=== PATIENT | male | born 1980 | race Asian ===

== ENCOUNTER 2017-02-14 21:25 | Emergency (ER) | payer OTHER ==
[~2017-02-14] VITALS: Ht 147.3 cm; Wt 60.0 kg
[~2017-02-14 21:25] MED LIST: CLOZ100 PO; DOCU250C91 PO; ESCI20TA PO; FAMO-135 PO; LEVO125T4 PO; LURA80 PO
[2017-02-14] MEDS ORDERED: LORA1TAB3 PO (21:47)
[2017-02-14 22:00] LABS: BASOPHILS % (AUTO) 0.4 % (0.0-2.0); EOSINOPHILS % (AUTO) 2.3 % (1.0-6.0); HEMATOCRIT 37.5 % (41-53); HEMOGLOBIN 12.5 g/dL (13.5-17.5); LYMPHOCYTES # (AUTO) 2.1 K/uL (1.0-4.8); LYMPHOCYTES % (AUTO) 29.8 % (22.0-44.0); MEAN CORPUSCULAR HEMOGLOBIN 28.2 pg (26.0-34.0); MEAN CORPUSCULAR HGB CONC 33.2 G/dL (31.0-37.0); MEAN CORPUSCULAR VOLUME 85 fL (80-100); MONOCYTES # (AUTO) 0.6 K/uL (0.1-1.0); MONOCYTES % (AUTO) 7.7 % (2.0-9.0); NEUTROPHILS # (AUTO) 4.3 K/uL (1.8-7.7); NEUTROPHILS % (AUTO) 59.8 % (40.0-70.0); PLATELET COUNT (AUTO) 293 K/uL (150-450); RED BLOOD CELL COUNT(AUTO) 4.42 MIL/uL (4.50-5.90); RED CELL DISTRIBUTION WIDTH 13.4 % (11.5-14.5); WHITE BLOOD COUNT (AUTO) 7.2 K/uL (4.5-11.0)
[2017-02-14 22:12] LABS: ANION GAP 8 mmol/L (8-16); CALCIUM, TOTAL 8.5 mg/dL (8.8-10.5); CARBON DIOXIDE 26 mmol/L (22-29); CHLORIDE 105 mmol/L (98-107); CREATININE 1.03 mg/dL (0.60-1.30); GLOMERULAR FILTR. RATE CALC > 60 mL/min (>60); POTASSIUM 3.1 mmol/L (3.5-5.1); SODIUM SERUM 139 mmol/L (136-145); UREA NITROGEN, BLOOD 19 mg/dL (7-18)
[2017-02-14 22:15] LABS: ALANINE AMINOTRANSFERASE 19 U/L (12-78); ALBUMIN 3.8 g/dL (3.4-5.0); ASPARTATE AMINOTRANSFERASE 16 U/L (15-37); BILIRUBIN,TOTAL 0.2 mg/dL (0.1-1.0); TOTAL PROTEIN, SERUM 7.1 g/dL (6.4-8.2)
[2017-02-14] MEDS ORDERED: HALOPERIDOL 5 MG TABLET PO ONE (22:45)
[2017-02-14] MEDS ORDERED: LORazepam 2 MG TABLET PO ONE (22:45)
[2017-02-15 00:08] VITALS: BP 111/66
== END 2017-02-15 00:27 | disposition home or self-care (01) ==
LOC: EMS 21:26
DX: F25.9 Schizoaffective disorder, unspecified (principal); E03.9 Hypothyroidism, unspecified; I10 Essential (primary) hypertension; E78.00 Pure hypercholesterolemia, unspecified; Z91.040 Latex allergy status; Z91.011 Allergy to milk products
CPT/HCPCS: 36415; 80053; 85025; 99284; G0480

== ENCOUNTER 2017-05-03 12:43 | Emergency (ER) | payer OTHER ==
[~2017-05-03] VITALS: Ht 149.9 cm; Wt 63.6 kg
[~2017-05-03 12:43] MED LIST changes: +LORA-192 PO; +LORA1TAB3 PO; +OLAN10TA22 PO
[2017-05-03] MEDS ORDERED: HALO5 PO (13:07)
[2017-05-03] MEDS ORDERED: LEVO125T4 PO (13:07)
[2017-05-03] MEDS ORDERED: METO25 PO (13:07)
[2017-05-03] MEDS ORDERED: OLAN10TA3 PO ×2 (13:07)
[2017-05-03] MEDS ORDERED: GEMF600T3 PO (13:07)
[2017-05-03] MEDS ORDERED: CLON.5 PO (13:07)
[2017-05-03 13:57] VITALS: BP 128/83
== END 2017-05-03 14:16 | disposition home or self-care (01) ==
LOC: EEVIPCON 12:45 → EMS 12:45
DX: S70.311A Abrasion, right thigh, initial encounter (principal); F20.9 Schizophrenia, unspecified; E03.9 Hypothyroidism, unspecified; E78.00 Pure hypercholesterolemia, unspecified; I10 Essential (primary) hypertension; Z91.040 Latex allergy status; Z91.011 Allergy to milk products; X58.XXXA Exposure to other specified factors, initial encounter; Y93.89 Activity, other specified; Y92.89 Other specified places as the place of occurrence of the external cause; Y99.8 Other external cause status
CPT/HCPCS: 99285

== ENCOUNTER 2017-11-07 13:18 | Inpatient (IN) | payer MEDICAID, OTHER ==
[~2017-11-07] VITALS: Ht 149.9 cm; Wt 60.8 kg
[~2017-11-07 13:18] MED LIST changes: +CLON.5 PO; +GEMF600T3 PO; +HALO5 PO; -LORA-192 PO; +METO25 PO; -OLAN10TA22 PO; +OLAN10TA3 PO
[2017-11-07 14:03] LABS: BASOPHILS # (AUTO) 0.05 K/uL (0.00-0.20); BASOPHILS % (AUTO) 0.8 % (0.0-2.0); EOSINOPHILS # (AUTO) 0.46 K/uL (0.00-0.70); EOSINOPHILS % (AUTO) 8.17 % (1.0-6.0); HEMATOCRIT 42.4 % (41-53); HEMOGLOBIN 14.3 g/dL (13.5-17.5); LYMPHOCYTES # (AUTO) 1.2 K/uL (1.0-4.8); LYMPHOCYTES % (AUTO) 21.6 % (22.0-44.0); MEAN CORPUSCULAR HEMOGLOBIN 29.3 pg (26.0-34.0); MEAN CORPUSCULAR HGB CONC 33.6 G/dL (31.0-37.0); MEAN CORPUSCULAR VOLUME 87 fL (80-100); MONOCYTES # (AUTO) 0.2 K/uL (0.1-1.0); MONOCYTES % (AUTO) 4.2 % (2.0-9.0); NEUTROPHILS # (AUTO) 3.7 K/uL (1.8-7.7); NEUTROPHILS % (AUTO) 65.2 % (40.0-70.0); PLATELET COUNT (AUTO) 320 K/uL (150-450); RED BLOOD CELL COUNT(AUTO) 4.88 MIL/uL (4.50-5.90); RED CELL DISTRIBUTION WIDTH 14.2 % (11.5-14.5)
[2017-11-07 14:11] LABS: ANION GAP 10 mmol/L (8-16); CALCIUM, TOTAL 9.2 mg/dL (8.8-10.5); CARBON DIOXIDE 29 mmol/L (22-29); CHLORIDE 102 mmol/L (98-107); CREATININE 1.16 mg/dL (0.60-1.30); GLOMERULAR FILTR. RATE CALC > 60 mL/min (>60); GLUCOSE,RANDOM 97 mg/dL (70-110); POTASSIUM 4.3 mmol/L (3.5-5.1); SODIUM SERUM 141 mmol/L (136-145); UREA NITROGEN, BLOOD 19 mg/dL (7-18)
[2017-11-07 14:17] LABS: ALANINE AMINOTRANSFERASE 24 U/L (12-78); ALBUMIN 4.8 g/dL (3.4-5.0); ALKALINE PHOSPHATASE 86 U/L (46-116); ASPARTATE AMINOTRANSFERASE 25 U/L (15-37); BILIRUBIN,TOTAL 0.2 mg/dL (0.1-1.0); TOTAL PROTEIN, SERUM 9.3 g/dL (6.4-8.2)
[2017-11-07 18:25] VITALS: BP 115/76
[2017-11-07 19:01] LABS: CHOL/HDL RATIO 4.8 (4.2-7.3); CHOLESTEROL 144 mg/dL (131-200); HDL CHOLESTEROL 30 mg/dL (40-60); LDL CHOL (CALC.) 70 mg/dL (0-130); TRIGLYCERIDES 219 mg/dL (15-150)
[2017-11-07 19:44] VITALS: BP 103/71
[2017-11-07] MEDS: ZOLPIDEM TARTRATE 10 MG TABLET PO PRN (20:28)
[2017-11-07] MEDS: LORazepam 2 MG TABLET PO PRN (20:28)
[2017-11-07] MEDS ORDERED: PNEUMOCOCCAL VACCINE POLYVALENT 0.5 ML VIAL [PPSV23] IM ONE (20:45)
[2017-11-07] MEDS ORDERED: INFLUENZA VIRUS VACCINE QVS 2017-18 (3YR+)/PF 60 MCG/0.5 ML SYRINGE IM ONE (20:45)
[2017-11-07 23:10] VITALS: BP 103/71
[2017-11-08] MEDS ORDERED: HALOPERIDOL LACTATE 5 MG/ML VIAL IM ONE
[2017-11-08] MEDS ORDERED: LORazepam 2 MG/ML VIAL IM ONE
[2017-11-08] MEDS ORDERED: DiphenhydrAMINE HCL 50 MG/ML VIAL IM ONE
[2017-11-08] MEDS: HALOPERIDOL 5 MG TABLET PO PRN ×2 (02:35→17:48)
[2017-11-08] MEDS: LORazepam 2 MG TABLET PO PRN ×3 (02:35→19:27)
[2017-11-08 12:17] VITALS: BP 106/66
[2017-11-08] MEDS: GEMFIBROZIL 600 MG TABLET PO SCH (17:23)
[2017-11-08 19:01] VITALS: BP 110/63
[2017-11-08] MEDS: ZOLPIDEM TARTRATE 10 MG TABLET PO PRN (21:52)
[2017-11-08] MEDS: METOPROLOL TARTRATE 25 MG TABLET PO SCH (21:52)
[2017-11-08 22:59] VITALS: BP 113/73
[2017-11-09] MEDS: GEMFIBROZIL 600 MG TABLET PO SCH ×2 (06:46→17:38)
[2017-11-09] MEDS: LEVOTHYROXINE SODIUM 125 MCG TABLET PO SCH (06:46)
[2017-11-09] MEDS: METOPROLOL TARTRATE 25 MG TABLET PO SCH ×2 (08:00→17:39)
[2017-11-09 08:10] VITALS: BP 123/76
[2017-11-09] MEDS ORDERED: FAMO20 PO (16:49)
[2017-11-09] MEDS ORDERED: RisperiDONE 1 MG TABLET PO SCH (17:00)
[2017-11-09] MEDS: CloZAPine 100 MG TABLET PO SCH (20:24)
[2017-11-10] MEDS: LEVOTHYROXINE SODIUM 125 MCG TABLET PO SCH (07:02)
[2017-11-10] MEDS: GEMFIBROZIL 600 MG TABLET PO SCH ×2 (07:02→16:13)
[2017-11-10 08:30] VITALS: BP 135/76
[2017-11-10] MEDS: METOPROLOL TARTRATE 25 MG TABLET PO SCH ×2 (08:58→16:13)
[2017-11-10 16:35] VITALS: BP 119/75
[2017-11-10 17:03] LABS: GLUCOMETER DEV NAME(LOC) 3EI B; GLUCOSE,POINT OF CARE 109 MG/DL (70-110)
[2017-11-10] MEDS: HALOPERIDOL 5 MG TABLET PO PRN (17:07)
[2017-11-10] MEDS: CloZAPine 100 MG TABLET PO SCH (21:34)
[2017-11-11 06:19] LABS: GLUCOMETER DEV NAME(LOC) 3EI B; GLUCOSE,POINT OF CARE 100 MG/DL (70-110)
[2017-11-11] MEDS: GEMFIBROZIL 600 MG TABLET PO SCH ×2 (06:39→16:18)
[2017-11-11] MEDS: LEVOTHYROXINE SODIUM 125 MCG TABLET PO SCH (06:39)
[2017-11-11 08:30] VITALS: BP 144/77
[2017-11-11] MEDS: METOPROLOL TARTRATE 25 MG TABLET PO SCH ×2 (09:48→16:18)
[2017-11-11] MEDS: HALOPERIDOL 5 MG TABLET PO PRN (16:18)
[2017-11-11 16:23] LABS: GLUCOMETER DEV NAME(LOC) 3EI B; GLUCOSE,POINT OF CARE 90 MG/DL (70-110)
[2017-11-11 17:00] VITALS: BP 120/82
[2017-11-11] MEDS: CloZAPine 100 MG TABLET PO SCH (22:01)
[2017-11-12 05:33] LABS: GLUCOMETER DEV NAME(LOC) 3EI B; GLUCOSE,POINT OF CARE 87 MG/DL (70-110)
[2017-11-12] MEDS: LEVOTHYROXINE SODIUM 125 MCG TABLET PO SCH (06:33)
[2017-11-12] MEDS: GEMFIBROZIL 600 MG TABLET PO SCH ×2 (06:33→16:11)
[2017-11-12 08:51] VITALS: BP 120/75
[2017-11-12] MEDS: METOPROLOL TARTRATE 25 MG TABLET PO SCH ×2 (08:57→16:11)
[2017-11-12] MEDS ORDERED: VIT E ACET/GLY/DIMETH/WATER 236 ML LOTION TP PRN (09:45)
[2017-11-12 17:03] LABS: GLUCOMETER DEV NAME(LOC) 3EI B; GLUCOSE,POINT OF CARE 115 MG/DL (70-110)
[2017-11-12 17:29] VITALS: BP 115/70
[2017-11-12] MEDS: CloZAPine 100 MG TABLET PO SCH (21:37)
[2017-11-13 06:32] LABS: GLUCOMETER DEV NAME(LOC) 3EI B; GLUCOSE,POINT OF CARE 106 MG/DL (70-110)
[2017-11-13] MEDS: LEVOTHYROXINE SODIUM 125 MCG TABLET PO SCH (06:54)
[2017-11-13] MEDS: GEMFIBROZIL 600 MG TABLET PO SCH ×2 (06:54→16:48)
[2017-11-13 08:44] VITALS: BP 119/87
[2017-11-13] MEDS: METOPROLOL TARTRATE 25 MG TABLET PO SCH ×2 (10:31→16:47)
[2017-11-13 17:07] LABS: GLUCOMETER DEV NAME(LOC) 3EI B; GLUCOSE,POINT OF CARE 105 MG/DL (70-110)
[2017-11-13] MEDS: CloZAPine 100 MG TABLET PO SCH (20:36)
[2017-11-13 20:57] VITALS: BP 121/86
[2017-11-14 06:22] LABS: GLUCOMETER DEV NAME(LOC) 3EI B; GLUCOSE,POINT OF CARE 95 MG/DL (70-110)
[2017-11-14] MEDS: GEMFIBROZIL 600 MG TABLET PO SCH ×2 (06:37→17:08)
[2017-11-14] MEDS: LEVOTHYROXINE SODIUM 125 MCG TABLET PO SCH (06:37)
[2017-11-14 07:54] LABS: BASOPHILS # (AUTO) 0.05 K/uL (0.00-0.20); BASOPHILS % (AUTO) 0.8 % (0.0-2.0); EOSINOPHILS # (AUTO) 0.71 K/uL (0.00-0.70); EOSINOPHILS % (AUTO) 11.64 % (1.0-6.0); HEMOGLOBIN 13.3 g/dL (13.5-17.5); LYMPHOCYTES # (AUTO) 1.4 K/uL (1.0-4.8); LYMPHOCYTES % (AUTO) 23.2 % (22.0-44.0); MEAN CORPUSCULAR HEMOGLOBIN 28.9 pg (26.0-34.0); MEAN CORPUSCULAR HGB CONC 33.2 G/dL (31.0-37.0); MEAN CORPUSCULAR VOLUME 87 fL (80-100); MONOCYTES # (AUTO) 0.5 K/uL (0.1-1.0); MONOCYTES % (AUTO) 7.3 % (2.0-9.0); NEUTROPHILS # (AUTO) 3.5 K/uL (1.8-7.7); NEUTROPHILS % (AUTO) 57.1 % (40.0-70.0); PLATELET COUNT (AUTO) 251 K/uL (150-450); RED CELL DISTRIBUTION WIDTH 13.4 % (11.5-14.5)
[2017-11-14 08:05] VITALS: BP 131/96
[2017-11-14] MEDS: METOPROLOL TARTRATE 25 MG TABLET PO SCH ×2 (10:06→17:09)
[2017-11-14] MEDS ORDERED: NALOXONE HCL 1 MG/ML 2 ML SYG IVP ONE (15:13)
[2017-11-14 17:12] LABS: GLUCOMETER DEV NAME(LOC) 3EI B; GLUCOSE,POINT OF CARE 103 MG/DL (70-110)
[2017-11-14] MEDS ORDERED: LORazepam 2 MG/ML VIAL IVP ONE (18:15)
[2017-11-14 18:40] LABS: BASOPHILS % (AUTO) 0.1 % (0.0-2.0); EOSINOPHILS # (AUTO) 0.48 K/uL (0.00-0.70); EOSINOPHILS % (AUTO) 6.13 % (1.0-6.0); HEMATOCRIT 41.8 % (41-53); HEMOGLOBIN 13.8 g/dL (13.5-17.5); LYMPHOCYTES # (AUTO) 1.3 K/uL (1.0-4.8); LYMPHOCYTES % (AUTO) 16.3 % (22.0-44.0); MEAN CORPUSCULAR HEMOGLOBIN 28.5 pg (26.0-34.0); MEAN CORPUSCULAR VOLUME 86 fL (80-100); MONOCYTES # (AUTO) 0.4 K/uL (0.1-1.0); MONOCYTES % (AUTO) 5.7 % (2.0-9.0); NEUTROPHILS # (AUTO) 5.6 K/uL (1.8-7.7); NEUTROPHILS % (AUTO) 71.8 % (40.0-70.0); RED BLOOD CELL COUNT(AUTO) 4.84 MIL/uL (4.50-5.90); RED CELL DISTRIBUTION WIDTH 13.4 % (11.5-14.5)
[2017-11-14 18:47] LABS: ANION GAP 12 mmol/L (8-16); CARBON DIOXIDE 24 mmol/L (22-29); CHLORIDE 102 mmol/L (98-107); CREATININE 1.06 mg/dL (0.60-1.30); GLOMERULAR FILTR. RATE CALC > 60 mL/min (>60); GLUCOSE,RANDOM 103 mg/dL (70-110); POTASSIUM 4.5 mmol/L (3.5-5.1); SODIUM SERUM 138 mmol/L (136-145); UREA NITROGEN, BLOOD 22 mg/dL (7-18)
[2017-11-14 18:53] LABS: ALANINE AMINOTRANSFERASE 28 U/L (12-78); ALBUMIN 4.4 g/dL (3.4-5.0); ALKALINE PHOSPHATASE 92 U/L (46-116); ASPARTATE AMINOTRANSFERASE 24 U/L (15-37); BILIRUBIN,TOTAL 0.3 mg/dL (0.1-1.0); TOTAL PROTEIN, SERUM 8.6 g/dL (6.4-8.2)
[2017-11-14 19:32] LABS: PLATELET COUNT (AUTO) 225 K/uL (150-450)
[2017-11-14 19:34] VITALS: BP 142/92
[2017-11-14] MEDS: CloZAPine 100 MG TABLET PO SCH (21:55)
[2017-11-15 02:23] VITALS: BP 148/86
[2017-11-15 06:02] LABS: GLUCOMETER DEV NAME(LOC) 3EI B; GLUCOSE,POINT OF CARE 97 MG/DL (70-110)
[2017-11-15] MEDS: LEVOTHYROXINE SODIUM 125 MCG TABLET PO SCH (06:17)
[2017-11-15] MEDS: GEMFIBROZIL 600 MG TABLET PO SCH (06:17)
[2017-11-15 08:00] VITALS: BP 122/77
[2017-11-15] MEDS: METOPROLOL TARTRATE 25 MG TABLET PO SCH (09:32)
[2017-11-15] MEDS: LORazepam 2 MG TABLET PO PRN (09:46)
[2017-11-15] MEDS ORDERED: PERMETHRIN 5% 60 GM CREAM TP ONE (12:45)
== END 2017-11-15 15:14 | disposition home or self-care (01) | DRG 750 ==
LOC: EMS 13:26 → AHU 17:50 → 3EI 11-09 14:08
PROVIDERS: ADMIT Psychiatry & Neurology Psychiatry; ATTEND Psychiatry & Neurology Psychiatry
PROC: 3E0234Z Introduction of Serum, Toxoid and Vaccine into Muscle, Percutaneous Approach (ICD-10-PCS; principal; 2017-11-07)
DX: F20.0 Paranoid schizophrenia (principal); E11.9 Type 2 diabetes mellitus without complications; R45.851 Suicidal ideations; I10 Essential (primary) hypertension; E03.9 Hypothyroidism, unspecified; E78.5 Hyperlipidemia, unspecified; K59.09 Other constipation; D35.2 Benign neoplasm of pituitary gland; Z91.040 Latex allergy status; Z91.011 Allergy to milk products; Z23 Encounter for immunization
CPT/HCPCS: 70450; 82962; 99285; G0480; J1200; J1630; J2060; J2310

== ENCOUNTER 2017-12-11 12:17 | Inpatient (IN) | payer MEDICAID, OTHER ==
[~2017-12-11] VITALS: Ht 147.3 cm; Wt 58.5 kg
[~2017-12-11 12:17] MED LIST changes: -CLON.5 PO; -DOCU250C91 PO; -ESCI20TA PO; -FAMO-135 PO; -HALO5 PO; -LORA1TAB3 PO; -LURA80 PO; -OLAN10TA3 PO
[2017-12-11] MEDS ORDERED: CLON1 PO (12:42)
[2017-12-11] MEDS ORDERED: BENZ1TAB10 PO (12:42)
[2017-12-11] MEDS ORDERED: OLAN10TA3 PO ×2 (12:42)
[2017-12-11] MEDS ORDERED: HALO5 PO (12:42)
[2017-12-11] MEDS ORDERED: LURA80 PO (12:42)
[2017-12-11] MEDS ORDERED: HALO50VI4 IM (12:42)
[2017-12-11] MEDS ORDERED: LORazepam 2 MG/ML VIAL IM ONE (13:15)
[2017-12-11] MEDS ORDERED: HALOPERIDOL LACTATE 5 MG/ML VIAL IM ONE (13:15)
[2017-12-11 13:20] LABS: BASOPHILS % (AUTO) 0.9 % (0.0-2.0); EOSINOPHILS % (AUTO) 3.1 % (1.0-6.0); HEMATOCRIT 39.6 % (41-53); HEMOGLOBIN 13.6 g/dL (13.5-17.5); LYMPHOCYTES # (AUTO) 1.1 K/uL (1.0-4.8); LYMPHOCYTES % (AUTO) 26.3 % (22.0-44.0); MEAN CORPUSCULAR HGB CONC 34.5 G/dL (31.0-37.0); MEAN CORPUSCULAR VOLUME 81 fL (80-100); MONOCYTES # (AUTO) 0.2 K/uL (0.1-1.0); MONOCYTES % (AUTO) 5.8 % (2.0-9.0); NEUTROPHILS # (AUTO) 2.7 K/uL (1.8-7.7); NEUTROPHILS % (AUTO) 63.9 % (40.0-70.0); PLATELET COUNT (AUTO) 296 K/uL (150-450); RED BLOOD CELL COUNT(AUTO) 4.87 MIL/uL (4.50-5.90); RED CELL DISTRIBUTION WIDTH 13.2 % (11.5-14.5)
[2017-12-11 13:42] LABS: ANION GAP 7 mmol/L (8-16); CARBON DIOXIDE 28 mmol/L (22-29); CHLORIDE 105 mmol/L (98-107); CREATININE 0.92 mg/dL (0.60-1.30); GLOMERULAR FILTR. RATE CALC > 60 mL/min (>60); GLUCOSE,RANDOM 90 mg/dL (70-110); SODIUM SERUM 140 mmol/L (136-145); UREA NITROGEN, BLOOD 12 mg/dL (7-18)
[2017-12-11 13:47] LABS: ALANINE AMINOTRANSFERASE 22 U/L (12-78); ALBUMIN 4.2 g/dL (3.4-5.0); ALKALINE PHOSPHATASE 67 U/L (46-116); ASPARTATE AMINOTRANSFERASE 21 U/L (15-37); BILIRUBIN,TOTAL 0.3 mg/dL (0.1-1.0); TOTAL PROTEIN, SERUM 7.7 g/dL (6.4-8.2)
[2017-12-11 13:50] LABS: AMPHET/METH SCREEN,URINE NEGATIVE (NEGATIVE); BARBITURATE SCREEN, URINE NEGATIVE (NEGATIVE); BENZODIAZEPINES SCREEN,URINE NEGATIVE (NEGATIVE); CANNABINOID SCREEN,URINE NEGATIVE (NEGATIVE); COCAINE SCREEN,URINE NEGATIVE (NEGATIVE); METHADONE SCREEN, URINE NEGATIVE (NEGATIVE); OPIATE SCREEN,URINE NEGATIVE (NEGATIVE)
[2017-12-11 13:51] LABS: PHENCYCLIDINE SCREEN,URINE NEGATIVE (NEGATIVE)
[2017-12-11] MEDS ORDERED: ZOLPIDEM TARTRATE 10 MG TABLET PO PRN (14:15)
[2017-12-11 18:32] LABS: GLUCOMETER DEV NAME(LOC) BV3N5; GLUCOSE,POINT OF CARE 113 MG/DL (70-110)
[2017-12-11 18:36] VITALS: BP 124/68
[2017-12-11] MEDS ORDERED: INFLUENZA VIRUS VACCINE QVS 2017-18 (3YR+)/PF 60 MCG/0.5 ML SYRINGE IM ONE (18:45)
[2017-12-11] MEDS ORDERED: PNEUMOCOCCAL VACCINE POLYVALENT 0.5 ML VIAL [PPSV23] IM ONE (18:45)
[2017-12-12 00:32] VITALS: BP 118/71
[2017-12-12] MEDS: LEVOTHYROXINE SODIUM 125 MCG TABLET PO SCH (06:38)
[2017-12-12] MEDS: GEMFIBROZIL 600 MG TABLET PO SCH ×2 (06:38→16:35)
[2017-12-12 08:06] VITALS: BP 110/67
[2017-12-12 09:00] LABS: CHOL/HDL RATIO 3.1 (4.2-7.3)
[2017-12-12] MEDS: LORazepam 2 MG TABLET PO PRN ×2 (09:28→16:35)
[2017-12-12] MEDS: METOPROLOL TARTRATE 25 MG TABLET PO SCH ×2 (09:28→16:35)
[2017-12-12] MEDS: HALOPERIDOL 5 MG TABLET PO PRN ×2 (09:28→16:35)
[2017-12-12] MEDS ORDERED: ACETAMINOPHEN 325 MG TABLET PO PRN (12:45)
[2017-12-12] MEDS ORDERED: IBUPROFEN 400 MG TABLET PO PRN (12:45)
[2017-12-12 16:00] VITALS: BP 114/65
[2017-12-12] MEDS: HALOPERIDOL 5 MG TABLET PO SCH (20:34)
[2017-12-13] MEDS: LEVOTHYROXINE SODIUM 125 MCG TABLET PO SCH (06:23)
[2017-12-13] MEDS: GEMFIBROZIL 600 MG TABLET PO SCH ×2 (06:23→17:31)
[2017-12-13 06:34] VITALS: BP 109/65
[2017-12-13 08:09] VITALS: BP 112/64
[2017-12-13 08:45] LABS: HEMOGLOBIN A1C 5.3 % (4.5-6.2)
[2017-12-13 08:51] LABS: THYROID STIMULATING HORMONE 8.71 uIU/mL (0.36-3.74)
[2017-12-13] MEDS: BENZTROPINE MESYLATE 1 MG TABLET PO SCH ×2 (09:18→17:31)
[2017-12-13] MEDS: METOPROLOL TARTRATE 25 MG TABLET PO SCH ×2 (09:18→17:31)
[2017-12-13 16:00] VITALS: BP 129/77
[2017-12-13] MEDS: LORazepam 2 MG TABLET PO PRN (17:31)
[2017-12-13] MEDS: HALOPERIDOL 5 MG TABLET PO PRN (17:31)
[2017-12-13] MEDS: HALOPERIDOL 5 MG TABLET PO SCH (21:14)
[2017-12-14 05:53] VITALS: BP 110/82
[2017-12-14] MEDS: LEVOTHYROXINE SODIUM 125 MCG TABLET PO SCH (06:36)
[2017-12-14] MEDS: GEMFIBROZIL 600 MG TABLET PO SCH ×2 (06:36→16:22)
[2017-12-14 08:22] VITALS: BP 114/76
[2017-12-14] MEDS: METOPROLOL TARTRATE 25 MG TABLET PO SCH ×2 (08:45→16:22)
[2017-12-14] MEDS: BENZTROPINE MESYLATE 1 MG TABLET PO SCH ×2 (08:45→16:22)
[2017-12-14] MEDS: LORazepam 2 MG TABLET PO PRN ×2 (11:51→17:15)
[2017-12-14] MEDS: HALOPERIDOL 5 MG TABLET PO PRN ×2 (11:51→18:43)
[2017-12-14] MEDS ORDERED: SELENIUM SULFIDE 1% 207 ML SHAMPOO TP PRN (12:30)
[2017-12-14 16:23] VITALS: BP 109/67
[2017-12-14] MEDS: HALOPERIDOL 5 MG TABLET PO SCH (20:09)
[2017-12-15 06:16] VITALS: BP 109/64
[2017-12-15] MEDS: GEMFIBROZIL 600 MG TABLET PO SCH ×2 (06:43→17:25)
[2017-12-15] MEDS: LEVOTHYROXINE SODIUM 125 MCG TABLET PO SCH (06:44)
[2017-12-15 08:08] VITALS: BP 106/62
[2017-12-15] MEDS: BENZTROPINE MESYLATE 1 MG TABLET PO SCH ×2 (08:30→17:25)
[2017-12-15] MEDS: METOPROLOL TARTRATE 25 MG TABLET PO SCH ×2 (08:30→17:25)
[2017-12-15 16:09] VITALS: BP 115/64
[2017-12-15] MEDS: LORazepam 2 MG TABLET PO PRN (17:25)
[2017-12-15] MEDS: HALOPERIDOL 5 MG TABLET PO SCH (20:43)
[2017-12-16 05:28] VITALS: BP 118/74
[2017-12-16] MEDS: GEMFIBROZIL 600 MG TABLET PO SCH ×2 (06:42→17:02)
[2017-12-16] MEDS: LEVOTHYROXINE SODIUM 125 MCG TABLET PO SCH (06:42)
[2017-12-16] MEDS: BENZTROPINE MESYLATE 1 MG TABLET PO SCH ×2 (08:18→17:02)
[2017-12-16] MEDS: METOPROLOL TARTRATE 25 MG TABLET PO SCH ×2 (08:18→17:02)
[2017-12-16] MEDS: LORazepam 2 MG TABLET PO PRN ×2 (08:18→17:02)
[2017-12-16 08:23] VITALS: BP 114/64
[2017-12-16 16:00] VITALS: BP 116/63
[2017-12-16] MEDS: HALOPERIDOL 5 MG TABLET PO PRN (17:03)
[2017-12-16] MEDS: HALOPERIDOL 5 MG TABLET PO SCH (20:30)
[2017-12-17] MEDS: LEVOTHYROXINE SODIUM 125 MCG TABLET PO SCH (06:25)
[2017-12-17] MEDS: GEMFIBROZIL 600 MG TABLET PO SCH (06:25)
[2017-12-17 06:29] VITALS: BP 114/63
[2017-12-17 08:11] VITALS: BP 116/62
[2017-12-17 08:36] LABS: APPEARANCE,URINE CLEAR (CLEAR); BILIRUBIN,URINE NEGATIVE (NEGATIVE); GLUCOSE, URINE (UA) NEGATIVE (NEGATIVE); KETONES,URINE NEGATIVE (NEGATIVE); LEUKOCYTE ESTERASE ,URINE NEGATIVE (NEGATIVE); NITRATE,URINE NEGATIVE (NEGATIVE); OCCULT BLOOD,URINE NEGATIVE (NEGATIVE); PROTEIN,URINE NEGATIVE (NEGATIVE); UROBILINOGEN,URINE 0.2 mg/dL (<=1.0)
[2017-12-17] MEDS: BENZTROPINE MESYLATE 1 MG TABLET PO SCH (09:31)
[2017-12-17] MEDS: METOPROLOL TARTRATE 25 MG TABLET PO SCH (09:31)
== END 2017-12-17 13:25 | disposition home or self-care (01) | DRG 750 ==
LOC: EEVIPCON 12:18 → EMS 12:18 → B3A 17:10
PROVIDERS: ADMIT Psychiatry & Neurology Psychiatry; ATTEND Psychiatry & Neurology Psychiatry
PROC: 3E0234Z Introduction of Serum, Toxoid and Vaccine into Muscle, Percutaneous Approach (ICD-10-PCS; principal; 2017-12-12)
DX: F20.0 Paranoid schizophrenia (principal); E11.9 Type 2 diabetes mellitus without complications; I10 Essential (primary) hypertension; E03.9 Hypothyroidism, unspecified; E78.5 Hyperlipidemia, unspecified; E78.00 Pure hypercholesterolemia, unspecified; K21.9 Gastro-esophageal reflux disease without esophagitis; F32.9 Major depressive disorder, single episode, unspecified; Z91.14 Patient's other noncompliance with medication regimen; Z91.040 Latex allergy status; Z91.011 Allergy to milk products; Z23 Encounter for immunization
CPT/HCPCS: 70450; 82962; 83036; 84443; 87081; 90471; 96372; 99285; G0480; J1630; J2060

== ENCOUNTER 2017-12-28 19:29 | Inpatient (IN) | payer MEDICAID, OTHER ==
[~2017-12-28] VITALS: Ht 147.3 cm; Wt 58.5 kg
[~2017-12-28 19:29] MED LIST changes: +BENZ1TAB10 PO; -CLOZ100 PO; +HALO5 PO
[2017-12-28 21:10] LABS: AMPHET/METH SCREEN,URINE NEGATIVE (NEGATIVE); BARBITURATE SCREEN, URINE NEGATIVE (NEGATIVE); BENZODIAZEPINES SCREEN,URINE NEGATIVE (NEGATIVE); CANNABINOID SCREEN,URINE NEGATIVE (NEGATIVE); COCAINE SCREEN,URINE NEGATIVE (NEGATIVE); METHADONE SCREEN, URINE NEGATIVE (NEGATIVE); OPIATE SCREEN,URINE NEGATIVE (NEGATIVE)
[2017-12-28 21:23] LABS: PHENCYCLIDINE SCREEN,URINE NEGATIVE (NEGATIVE)
[2017-12-28 21:25] LABS: BASOPHILS % (AUTO) 0.6 % (0.0-2.0); EOSINOPHILS % (AUTO) 2.8 % (1.0-6.0); HEMATOCRIT 38.7 % (41-53); HEMOGLOBIN 13.6 g/dL (13.5-17.5); LYMPHOCYTES # (AUTO) 2.3 K/uL (1.0-4.8); LYMPHOCYTES % (AUTO) 33.9 % (22.0-44.0); MEAN CORPUSCULAR HEMOGLOBIN 28.3 pg (26.0-34.0); MEAN CORPUSCULAR HGB CONC 35.1 G/dL (31.0-37.0); MEAN CORPUSCULAR VOLUME 81 fL (80-100); MONOCYTES # (AUTO) 0.6 K/uL (0.1-1.0); MONOCYTES % (AUTO) 8.3 % (2.0-9.0); NEUTROPHILS # (AUTO) 3.7 K/uL (1.8-7.7); NEUTROPHILS % (AUTO) 54.4 % (40.0-70.0); PLATELET COUNT (AUTO) 242 K/uL (150-450); RED CELL DISTRIBUTION WIDTH 12.9 % (11.5-14.5)
[2017-12-28 21:44] LABS: ALANINE AMINOTRANSFERASE 23 U/L (12-78); ALBUMIN 3.9 g/dL (3.4-5.0); ALKALINE PHOSPHATASE 92 U/L (46-116); ANION GAP 11 mmol/L (8-16); ASPARTATE AMINOTRANSFERASE 16 U/L (15-37); BILIRUBIN,TOTAL 0.3 mg/dL (0.1-1.0); CARBON DIOXIDE 26 mmol/L (22-29); CHLORIDE 104 mmol/L (98-107); CREATININE 0.91 mg/dL (0.60-1.30); GLOMERULAR FILTR. RATE CALC > 60 mL/min (>60); GLUCOSE,RANDOM 102 mg/dL (70-110); SODIUM SERUM 141 mmol/L (136-145); TOTAL PROTEIN, SERUM 7.8 g/dL (6.4-8.2); UREA NITROGEN, BLOOD 16 mg/dL (7-18)
[2017-12-28] MEDS ORDERED: ZOLPIDEM TARTRATE 10 MG TABLET PO PRN (22:45)
[2017-12-29] MEDS ORDERED: ACETAMINOPHEN 500 MG TABLET PO ONE (01:00)
[2017-12-29 04:40] VITALS: BP 128/72
[2017-12-29 07:28] LABS: CHOL/HDL RATIO 4.3 (4.2-7.3)
[2017-12-29 08:05] VITALS: BP 110/62
[2017-12-29] MEDS: METOPROLOL TARTRATE 25 MG TABLET PO SCH ×2 (09:07→17:24)
[2017-12-29] MEDS: LORazepam 2 MG TABLET PO PRN ×2 (09:08→20:05)
[2017-12-29] MEDS: HALOPERIDOL 5 MG TABLET PO PRN (10:01)
[2017-12-29] MEDS: GEMFIBROZIL 600 MG TABLET PO SCH (17:24)
[2017-12-29 18:44] VITALS: BP 122/70
[2017-12-30] MEDS: GEMFIBROZIL 600 MG TABLET PO SCH ×2 (07:45→16:26)
[2017-12-30] MEDS: LEVOTHYROXINE SODIUM 125 MCG TABLET PO SCH (07:45)
[2017-12-30] MEDS: LORazepam 2 MG TABLET PO PRN (08:21)
[2017-12-30] MEDS: METOPROLOL TARTRATE 25 MG TABLET PO SCH ×2 (08:21→16:26)
[2017-12-30] MEDS: HALOPERIDOL 5 MG TABLET PO PRN ×2 (08:21→16:26)
[2017-12-30 09:25] VITALS: BP 125/76
[2017-12-30] MEDS ORDERED: IBUPROFEN 400 MG TABLET PO PRN (14:15)
[2017-12-30] MEDS ORDERED: ACETAMINOPHEN 325 MG TABLET PO PRN (14:15)
[2017-12-30 16:28] VITALS: BP 136/75
[2017-12-30] MEDS: HALOPERIDOL 5 MG TABLET PO SCH (20:43)
[2017-12-31] MEDS: GEMFIBROZIL 600 MG TABLET PO SCH ×3 (06:54→17:55)
[2017-12-31] MEDS: LEVOTHYROXINE SODIUM 125 MCG TABLET PO SCH (06:54)
[2017-12-31 08:23] LABS: APPEARANCE,URINE CLEAR (CLEAR); BILIRUBIN,URINE NEGATIVE (NEGATIVE); GLUCOSE, URINE (UA) NEGATIVE (NEGATIVE); KETONES,URINE NEGATIVE (NEGATIVE); LEUKOCYTE ESTERASE ,URINE NEGATIVE (NEGATIVE); NITRATE,URINE NEGATIVE (NEGATIVE); OCCULT BLOOD,URINE NEGATIVE (NEGATIVE); PH,URINE 5.5 (5.0-8.0); PROTEIN,URINE NEGATIVE (NEGATIVE); UROBILINOGEN,URINE 0.2 mg/dL (<=1.0)
[2017-12-31 08:57] VITALS: BP 111/65
[2017-12-31] MEDS: BENZTROPINE MESYLATE 1 MG TABLET PO SCH ×3 (09:11→17:55)
[2017-12-31] MEDS: METOPROLOL TARTRATE 25 MG TABLET PO SCH ×3 (09:12→17:55)
[2017-12-31] MEDS: HALOPERIDOL 5 MG TABLET PO SCH (21:00)
[2018-01-01] MEDS: LEVOTHYROXINE SODIUM 125 MCG TABLET PO SCH (06:46)
[2018-01-01] MEDS: GEMFIBROZIL 600 MG TABLET PO SCH ×2 (06:47→16:06)
[2018-01-01] MEDS: BENZTROPINE MESYLATE 1 MG TABLET PO SCH ×2 (08:37→16:06)
[2018-01-01] MEDS: METOPROLOL TARTRATE 25 MG TABLET PO SCH ×2 (08:37→16:06)
[2018-01-01] MEDS: LORazepam 2 MG TABLET PO PRN (08:37)
[2018-01-01] MEDS: HALOPERIDOL 5 MG TABLET PO PRN (08:37)
[2018-01-01 10:14] VITALS: BP 125/73
[2018-01-01 17:15] VITALS: BP 111/73
[2018-01-01] MEDS: HALOPERIDOL 5 MG TABLET PO SCH (20:25)
[2018-01-02] MEDS: GEMFIBROZIL 600 MG TABLET PO SCH ×2 (07:01→17:03)
[2018-01-02] MEDS: LEVOTHYROXINE SODIUM 125 MCG TABLET PO SCH (07:01)
[2018-01-02 09:00] VITALS: BP 104/67
[2018-01-02] MEDS: BENZTROPINE MESYLATE 1 MG TABLET PO SCH ×2 (09:38→17:03)
[2018-01-02] MEDS: METOPROLOL TARTRATE 25 MG TABLET PO SCH ×2 (09:38→17:03)
[2018-01-02] MEDS: LORazepam 2 MG TABLET PO PRN ×2 (09:38→17:03)
[2018-01-02] MEDS: HALOPERIDOL 5 MG TABLET PO PRN ×2 (09:38→17:03)
[2018-01-02 16:44] VITALS: BP 116/73
[2018-01-02] MEDS: HALOPERIDOL 5 MG TABLET PO SCH (20:13)
[2018-01-03] MEDS: LEVOTHYROXINE SODIUM 125 MCG TABLET PO SCH (06:40)
[2018-01-03] MEDS: GEMFIBROZIL 600 MG TABLET PO SCH ×2 (06:40→16:39)
[2018-01-03] MEDS: LORazepam 2 MG TABLET PO PRN ×2 (08:42→16:40)
[2018-01-03] MEDS: HALOPERIDOL 5 MG TABLET PO PRN ×2 (08:42→16:40)
[2018-01-03] MEDS: BENZTROPINE MESYLATE 1 MG TABLET PO SCH ×2 (08:42→16:39)
[2018-01-03] MEDS: METOPROLOL TARTRATE 25 MG TABLET PO SCH ×2 (08:42→16:39)
[2018-01-03 09:30] VITALS: BP 112/72
[2018-01-03] MEDS: HALOPERIDOL 5 MG TABLET PO SCH (20:27)
[2018-01-03 21:34] VITALS: BP 103/60
[2018-01-04] MEDS: GEMFIBROZIL 600 MG TABLET PO SCH ×2 (06:54→16:29)
[2018-01-04] MEDS: LEVOTHYROXINE SODIUM 125 MCG TABLET PO SCH (06:54)
[2018-01-04 08:15] VITALS: BP 104/67
[2018-01-04] MEDS: LORazepam 2 MG TABLET PO PRN (11:01)
[2018-01-04] MEDS: METOPROLOL TARTRATE 25 MG TABLET PO SCH ×2 (11:01→16:30)
[2018-01-04] MEDS: BENZTROPINE MESYLATE 1 MG TABLET PO SCH ×2 (11:01→16:29)
[2018-01-04] MEDS: HALOPERIDOL 5 MG TABLET PO PRN (11:01)
== END 2018-01-04 19:15 | disposition home or self-care (01) | DRG 750 ==
LOC: EMS 19:32 → 3EI 12-29 00:36
PROVIDERS: ADMIT Psychiatry & Neurology Psychiatry; ATTEND Psychiatry & Neurology Psychiatry
DX: F25.9 Schizoaffective disorder, unspecified (principal); R45.851 Suicidal ideations; Z78.1 Physical restraint status; E11.9 Type 2 diabetes mellitus without complications; I10 Essential (primary) hypertension; E03.9 Hypothyroidism, unspecified; E78.00 Pure hypercholesterolemia, unspecified; H91.90 Unspecified hearing loss, unspecified ear; K21.9 Gastro-esophageal reflux disease without esophagitis; M48.00 Spinal stenosis, site unspecified; S00.93XA Contusion of unspecified part of head, initial encounter; S71.111A Laceration without foreign body, right thigh, initial encounter; X58.XXXA Exposure to other specified factors, initial encounter; Y93.89 Activity, other specified; Y92.89 Other specified places as the place of occurrence of the external cause; Y99.8 Other external cause status; Z91.040 Latex allergy status; Z91.011 Allergy to milk products; Z79.899 Other long term (current) drug therapy
CPT/HCPCS: 70450; 72125; 83036; 87081; 99285; G0480

== ENCOUNTER 2018-05-06 19:20 | Inpatient (IN) | payer MEDICAID, OTHER ==
[~2018-05-06] VITALS: Ht 147.3 cm; Wt 54.5 kg
[~2018-05-06 19:20] MED LIST changes: -HALO5 PO; +HALO5TAB2 PO
[2018-05-06 21:00] LABS: BASOPHILS % (AUTO) 0.7 % (0.0-2.0); EOSINOPHILS % (AUTO) 1.8 % (1.0-6.0); HEMATOCRIT 37.8 % (41-53); LYMPHOCYTES # (AUTO) 1.4 K/uL (1.0-4.8); MEAN CORPUSCULAR HEMOGLOBIN 27.9 pg (26.0-34.0); MEAN CORPUSCULAR HGB CONC 34.5 G/dL (31.0-37.0); MEAN CORPUSCULAR VOLUME 81 fL (80-100); MONOCYTES # (AUTO) 0.4 K/uL (0.1-1.0); MONOCYTES % (AUTO) 5.5 % (2.0-9.0); NEUTROPHILS # (AUTO) 4.4 K/uL (1.8-7.7); PLATELET COUNT (AUTO) 273 K/uL (150-450); RED BLOOD CELL COUNT(AUTO) 4.68 MIL/uL (4.50-5.90); RED CELL DISTRIBUTION WIDTH 13.8 % (11.5-14.5)
[2018-05-06 21:12] LABS: ANION GAP 12 mmol/L (8-16); CALCIUM, TOTAL 8.9 mg/dL (8.8-10.5); CARBON DIOXIDE 26 mmol/L (22-29); CHLORIDE 105 mmol/L (98-107); CREATININE 1.02 mg/dL (0.60-1.30); GLOMERULAR FILTR. RATE CALC > 60 mL/min (>60); GLUCOSE,RANDOM 103 mg/dL (70-110); POTASSIUM 3.5 mmol/L (3.5-5.1); SODIUM SERUM 143 mmol/L (136-145); UREA NITROGEN, BLOOD 18 mg/dL (7-18)
[2018-05-06 21:18] LABS: ALANINE AMINOTRANSFERASE 17 U/L (12-78); ALBUMIN 4.1 g/dL (3.4-5.0); ALKALINE PHOSPHATASE 85 U/L (46-116); ASPARTATE AMINOTRANSFERASE 14 U/L (15-37); BILIRUBIN,TOTAL 0.3 mg/dL (0.1-1.0); TOTAL PROTEIN, SERUM 7.7 g/dL (6.4-8.2)
[2018-05-06] MEDS ORDERED: OLANZapine 5 MG RAPDIS TABLET PO PRN (22:00)
[2018-05-06 23:32] LABS: AMPHET/METH SCREEN,URINE NEGATIVE (NEGATIVE); BARBITURATE SCREEN, URINE NEGATIVE (NEGATIVE); BENZODIAZEPINES SCREEN,URINE NEGATIVE (NEGATIVE); CANNABINOID SCREEN,URINE NEGATIVE (NEGATIVE); COCAINE SCREEN,URINE NEGATIVE (NEGATIVE); METHADONE SCREEN, URINE NEGATIVE (NEGATIVE); OPIATE SCREEN,URINE NEGATIVE (NEGATIVE); PHENCYCLIDINE SCREEN,URINE NEGATIVE (NEGATIVE)
[2018-05-07] MEDS: LORazepam 2 MG TABLET PO PRN ×2 (00:27→12:32)
[2018-05-07] MEDS: ZOLPIDEM TARTRATE 10 MG TABLET PO PRN (01:45)
[2018-05-07 08:17] LABS: FREE T4 (FREE THYROXINE) 1.12 ng/dL (0.76-1.46); THYROID STIMULATING HORMONE 6.95 uIU/mL (0.36-3.74)
[2018-05-07 13:41] LABS: APPEARANCE,URINE CLEAR (CLEAR); BILIRUBIN,URINE NEGATIVE (NEGATIVE); GLUCOSE, URINE (UA) NEGATIVE (NEGATIVE); KETONES,URINE NEGATIVE (NEGATIVE); LEUKOCYTE ESTERASE ,URINE NEGATIVE (NEGATIVE); NITRATE,URINE NEGATIVE (NEGATIVE); OCCULT BLOOD,URINE NEGATIVE (NEGATIVE); PROTEIN,URINE NEGATIVE (NEGATIVE); UROBILINOGEN,URINE 0.2 mg/dL (<=1.0)
[2018-05-07 16:19] LABS: GLUCOMETER DEV NAME(LOC) BV3N5; GLUCOSE,POINT OF CARE 86 MG/DL (70-110)
[2018-05-07 16:25] VITALS: BP 116/71
[2018-05-08 00:47] VITALS: BP 106/62
[2018-05-08] MEDS ORDERED: -PHARMACY VACCINE NOTE- MISC ONE (01:45)
[2018-05-08] MEDS: LEVOTHYROXINE SODIUM 125 MCG TABLET PO SCH (06:27)
[2018-05-08 08:03] VITALS: BP 113/66
[2018-05-08] MEDS ORDERED: TUBERCULIN, PURIFIED PROTEIN DERIVATIVE 5 TU/0.1 ML SYG ID ONE (11:45)
[2018-05-08] MEDS ORDERED: LOPERAMIDE HCL 2 MG CAPSULE PO PRN (11:45)
[2018-05-08] MEDS ORDERED: HALOPERIDOL 5 MG TABLET PO PRN (11:45)
[2018-05-08] MEDS ORDERED: MAG HYDROX/AL HYDROX/SIMETH ES 30 ML SUSPENSION UDCUP PO PRN (11:45)
[2018-05-08] MEDS ORDERED: HydrOXYzine PAMOATE 50 MG CAPSULE PO PRN (11:45)
[2018-05-08] MEDS ORDERED: GuaiFENesin/D-METHORPHAN [SUGAR-FREE] 200-20MG/10 ML SYRUP UDCUP PO PRN (11:45)
[2018-05-08] MEDS ORDERED: MAGNESIUM HYDROXIDE SUSPENSION 30 ML UDCUP PO PRN (11:45)
[2018-05-08] MEDS: THIAMINE HCL 100 MG TABLET PO SCH (16:05)
[2018-05-08 16:42] VITALS: BP 113/71
[2018-05-08] MEDS ORDERED: OLANZapine 5 MG RAPDIS TABLET PO PRN (17:30)
[2018-05-08] MEDS: OLANZapine 5 MG RAPDIS TABLET PO SCH (20:30)
[2018-05-08] MEDS ORDERED: HALOPERIDOL 5 MG TABLET PO SCH (21:00)
[2018-05-09 05:41] VITALS: BP 109/73
[2018-05-09] MEDS: LEVOTHYROXINE SODIUM 125 MCG TABLET PO SCH (06:46)
[2018-05-09] MEDS: THIAMINE HCL 100 MG TABLET PO SCH ×2 (08:20→16:05)
[2018-05-09] MEDS: FOLIC ACID 1 MG TABLET PO SCH (08:20)
[2018-05-09] MEDS: MULTIVITAMINS WITH MINERALS, THERAPEUTIC TABLET PO SCH (08:20)
[2018-05-09 08:24] VITALS: BP 100/70
[2018-05-09] MEDS: LORazepam 2 MG TABLET PO PRN (12:25)
[2018-05-09 16:07] VITALS: BP 108/64
[2018-05-09] MEDS: OLANZapine 5 MG RAPDIS TABLET PO SCH (20:14)
[2018-05-10] VITALS (8 sets, daily range): BP systolic 106–140; BP diastolic 63–90
[2018-05-10] MEDS: LEVOTHYROXINE SODIUM 125 MCG TABLET PO SCH (07:00)
[2018-05-10] MEDS: NALTREXONE HCL 50 MG TABLET PO SCH (09:23)
[2018-05-10] MEDS: THIAMINE HCL 100 MG TABLET PO SCH ×2 (09:23→16:49)
[2018-05-10] MEDS: MULTIVITAMINS WITH MINERALS, THERAPEUTIC TABLET PO SCH (09:24)
[2018-05-10] MEDS: FOLIC ACID 1 MG TABLET PO SCH (09:24)
[2018-05-10] MEDS: OLANZapine 5 MG RAPDIS TABLET PO SCH (21:00)
[2018-05-11 02:42] VITALS: BP 102/64
[2018-05-11] MEDS: ACETAMINOPHEN 325 MG TABLET PO PRN ×3 (02:45→20:08)
[2018-05-11 02:53] VITALS: BP 102/64
[2018-05-11] MEDS: LEVOTHYROXINE SODIUM 125 MCG TABLET PO SCH (07:38)
[2018-05-11] MEDS: THIAMINE HCL 100 MG TABLET PO SCH ×3 (09:00→16:02)
[2018-05-11] MEDS: NALTREXONE HCL 50 MG TABLET PO SCH ×2 (09:00→09:23)
[2018-05-11] MEDS: MULTIVITAMINS WITH MINERALS, THERAPEUTIC TABLET PO SCH ×2 (09:00→09:23)
[2018-05-11] MEDS: FOLIC ACID 1 MG TABLET PO SCH ×2 (09:00→09:23)
[2018-05-11 10:13] VITALS: BP 112/68
[2018-05-11 16:00] VITALS: BP 107/68
[2018-05-11] MEDS: LORazepam 2 MG TABLET PO PRN (16:02)
[2018-05-11 20:08] VITALS: BP 114/72
[2018-05-11] MEDS: ZOLPIDEM TARTRATE 10 MG TABLET PO PRN (20:08)
[2018-05-11] MEDS: OLANZapine 5 MG RAPDIS TABLET PO SCH (20:08)
[2018-05-12 06:25] VITALS: BP 102/60
[2018-05-12] MEDS: LEVOTHYROXINE SODIUM 125 MCG TABLET PO SCH (06:36)
[2018-05-12 08:19] VITALS: BP 116/62
[2018-05-12] MEDS: THIAMINE HCL 100 MG TABLET PO SCH ×2 (08:26→16:15)
[2018-05-12] MEDS: MULTIVITAMINS WITH MINERALS, THERAPEUTIC TABLET PO SCH (08:26)
[2018-05-12] MEDS: FOLIC ACID 1 MG TABLET PO SCH (08:27)
[2018-05-12] MEDS: NALTREXONE HCL 50 MG TABLET PO SCH (08:27)
[2018-05-12] MEDS: ACETAMINOPHEN 325 MG TABLET PO PRN (11:13)
[2018-05-12] MEDS: LORazepam 2 MG TABLET PO PRN ×2 (12:47→16:48)
[2018-05-12 15:59] VITALS: BP 116/64
[2018-05-12 16:00] VITALS: BP 116/64
[2018-05-12] MEDS: OLANZapine 5 MG RAPDIS TABLET PO SCH (20:39)
[2018-05-13 02:50] VITALS: BP 120/81
[2018-05-13] MEDS: LEVOTHYROXINE SODIUM 125 MCG TABLET PO SCH (07:09)
[2018-05-13 08:00] VITALS: BP 114/66
[2018-05-13] MEDS: NALTREXONE HCL 50 MG TABLET PO SCH (09:50)
[2018-05-13] MEDS: MULTIVITAMINS WITH MINERALS, THERAPEUTIC TABLET PO SCH (09:50)
[2018-05-13] MEDS: THIAMINE HCL 100 MG TABLET PO SCH ×2 (09:50→17:38)
[2018-05-13] MEDS: FOLIC ACID 1 MG TABLET PO SCH (09:50)
[2018-05-13 16:21] VITALS: BP 126/74
[2018-05-13] MEDS: GABAPENTIN 100 MG CAPSULE PO SCH (17:38)
[2018-05-13] MEDS: OLANZapine 10 MG RAPDIS TABLET PO SCH (20:05)
[2018-05-13] MEDS: LORazepam 2 MG TABLET PO PRN (21:34)
[2018-05-14] MEDS: LEVOTHYROXINE SODIUM 125 MCG TABLET PO SCH (07:13)
[2018-05-14 07:26] VITALS: BP 120/81
[2018-05-14 08:33] VITALS: BP 111/64
[2018-05-14] MEDS ORDERED: DULoxetine HCL 20 MG CAPSULE PO SCH (09:00)
[2018-05-14] MEDS: MULTIVITAMINS WITH MINERALS, THERAPEUTIC TABLET PO SCH (09:21)
[2018-05-14] MEDS: THIAMINE HCL 100 MG TABLET PO SCH ×2 (09:21→17:14)
[2018-05-14] MEDS: GABAPENTIN 100 MG CAPSULE PO SCH ×3 (09:22→17:14)
[2018-05-14] MEDS: FOLIC ACID 1 MG TABLET PO SCH (09:22)
[2018-05-14] MEDS: NALTREXONE HCL 50 MG TABLET PO SCH (09:22)
[2018-05-14 16:01] VITALS: BP 129/73
[2018-05-14] MEDS: OLANZapine 10 MG RAPDIS TABLET PO SCH (20:09)
[2018-05-15 07:15] VITALS: BP 126/70
[2018-05-15] MEDS: LEVOTHYROXINE SODIUM 125 MCG TABLET PO SCH (07:16)
[2018-05-15 08:14] VITALS: BP 106/64
[2018-05-15] MEDS ORDERED: DULoxetine HCL 30 MG CAPSULE PO SCH (09:00)
[2018-05-15] MEDS: MULTIVITAMINS WITH MINERALS, THERAPEUTIC TABLET PO SCH (09:18)
[2018-05-15] MEDS: THIAMINE HCL 100 MG TABLET PO SCH ×2 (09:18→16:32)
[2018-05-15] MEDS: GABAPENTIN 100 MG CAPSULE PO SCH ×2 (09:18→12:11)
[2018-05-15] MEDS: FOLIC ACID 1 MG TABLET PO SCH (09:18)
[2018-05-15] MEDS: NALTREXONE HCL 50 MG TABLET PO SCH (09:18)
[2018-05-15 16:02] VITALS: BP 135/72
[2018-05-15] MEDS: GABAPENTIN 300 MG CAPSULE PO SCH (16:33)
[2018-05-15] MEDS: OLANZapine 10 MG RAPDIS TABLET PO SCH (20:22)
[2018-05-16] MEDS: LEVOTHYROXINE SODIUM 125 MCG TABLET PO SCH (07:08)
[2018-05-16 07:12] VITALS: BP 116/68
[2018-05-16 08:44] VITALS: BP 98/57
[2018-05-16] MEDS: NALTREXONE HCL 50 MG TABLET PO SCH (08:54)
[2018-05-16] MEDS: FOLIC ACID 1 MG TABLET PO SCH (08:54)
[2018-05-16] MEDS: THIAMINE HCL 100 MG TABLET PO SCH ×2 (08:54→16:00)
[2018-05-16] MEDS: MULTIVITAMINS WITH MINERALS, THERAPEUTIC TABLET PO SCH (08:54)
[2018-05-16] MEDS: GABAPENTIN 300 MG CAPSULE PO SCH ×3 (08:55→16:01)
[2018-05-16] MEDS: DULoxetine HCL 60 MG CAPSULE PO SCH (08:55)
[2018-05-16] MEDS ORDERED: GABA-531 PO (16:02)
[2018-05-16] MEDS ORDERED: DULO60CA44 PO (16:02)
[2018-05-16] MEDS ORDERED: OLAN10TA22 PO (16:02)
[2018-05-16] MEDS ORDERED: NALT50TA PO (16:02)
[2018-05-16 16:21] VITALS: BP 122/94
[2018-05-16] MEDS ORDERED: GuaiFENesin/D-METHORPHAN [SUGAR-FREE] 200-20MG/10 ML SYRUP UDCUP PO PRN (19:45)
[2018-05-16] MEDS: OLANZapine 10 MG RAPDIS TABLET PO SCH ×2 (21:00→21:52)
[2018-05-17 06:29] VITALS: BP 102/68
[2018-05-17] MEDS: LEVOTHYROXINE SODIUM 125 MCG TABLET PO SCH (06:57)
[2018-05-17 08:21] VITALS: BP 129/63
[2018-05-17] MEDS: THIAMINE HCL 100 MG TABLET PO SCH (08:44)
[2018-05-17] MEDS: DULoxetine HCL 60 MG CAPSULE PO SCH (08:44)
[2018-05-17] MEDS: NALTREXONE HCL 50 MG TABLET PO SCH (08:44)
[2018-05-17] MEDS: MULTIVITAMINS WITH MINERALS, THERAPEUTIC TABLET PO SCH (08:44)
[2018-05-17] MEDS: GABAPENTIN 300 MG CAPSULE PO SCH ×2 (08:44→13:02)
[2018-05-17] MEDS: FOLIC ACID 1 MG TABLET PO SCH (08:44)
== END 2018-05-17 13:20 | disposition home or self-care (01) | DRG 750 ==
LOC: EMS 19:24 → B3A 05-07 12:50 → B2S 05-07 19:05
PROVIDERS: ADMIT Psychiatry & Neurology Psychiatry; ATTEND Psychiatry & Neurology Psychiatry
DX: F25.9 Schizoaffective disorder, unspecified (principal); Z91.19 Patient's noncompliance with other medical treatment and regimen; I10 Essential (primary) hypertension; E03.9 Hypothyroidism, unspecified; D64.9 Anemia, unspecified; K21.9 Gastro-esophageal reflux disease without esophagitis; E78.00 Pure hypercholesterolemia, unspecified; H91.90 Unspecified hearing loss, unspecified ear; E78.5 Hyperlipidemia, unspecified; Z65.3 Problems related to other legal circumstances; Z91.011 Allergy to milk products; Z79.899 Other long term (current) drug therapy; Z80.6 Family history of leukemia; Z80.8 Family history of malignant neoplasm of other organs or systems; Z82.3 Family history of stroke; Z91.040 Latex allergy status; Z84.89 Family history of other specified conditions
CPT/HCPCS: 83036; 84439; 84443; 99285; G0480

== ENCOUNTER 2018-05-10 18:12 | Emergency (ER) | payer MEDICAID, OTHER ==
[~2018-05-10] VITALS: Ht 149.9 cm; Wt 54.5 kg
[2018-05-10 21:15] VITALS: BP 136/79
== END 2018-05-10 21:59 | disposition home or self-care (01) ==
LOC: EMS 18:13
DX: S09.90XA Unspecified injury of head, initial encounter (principal); F20.9 Schizophrenia, unspecified; I10 Essential (primary) hypertension; E03.9 Hypothyroidism, unspecified; E78.00 Pure hypercholesterolemia, unspecified; Z91.040 Latex allergy status; Z91.011 Allergy to milk products; W22.8XXA Striking against or struck by other objects, initial encounter; Y93.89 Activity, other specified; Y92.89 Other specified places as the place of occurrence of the external cause; Y99.8 Other external cause status
CPT/HCPCS: 70450; 99284

== ENCOUNTER 2018-06-20 13:55 | Inpatient (IN) | payer MEDICAID, OTHER ==
[~2018-06-20] VITALS: Ht 149.9 cm; Wt 55.8 kg
[~2018-06-20 13:55] MED LIST changes: -BENZ1TAB10 PO; +DULO60CA44 PO; +GABA-531 PO; -GEMF600T3 PO; -HALO5TAB2 PO; -METO25 PO; +NALT50TA PO; +OLAN10TA22 PO
[2018-06-20 15:24] LABS: BASOPHILS % (AUTO) 0.6 % (0.0-2.0); EOSINOPHILS % (AUTO) 3.1 % (1.0-6.0); HEMATOCRIT 44.3 % (41-53); LYMPHOCYTES # (AUTO) 1.6 K/uL (1.0-4.8); MEAN CORPUSCULAR HEMOGLOBIN 28.1 pg (26.0-34.0); MEAN CORPUSCULAR HGB CONC 33.9 G/dL (31.0-37.0); MEAN CORPUSCULAR VOLUME 83 fL (80-100); MONOCYTES # (AUTO) 0.3 K/uL (0.1-1.0); MONOCYTES % (AUTO) 4.8 % (2.0-9.0); NEUTROPHILS # (AUTO) 4.6 K/uL (1.8-7.7); NEUTROPHILS % (AUTO) 68.5 % (40.0-70.0); PLATELET COUNT (AUTO) 287 K/uL (150-450); RED BLOOD CELL COUNT(AUTO) 5.36 MIL/uL (4.50-5.90); RED CELL DISTRIBUTION WIDTH 13.9 % (11.5-14.5)
[2018-06-20 15:40] LABS: ANION GAP 10 mmol/L (8-16); CALCIUM, TOTAL 9.2 mg/dL (8.8-10.5); CARBON DIOXIDE 28 mmol/L (22-29); CHLORIDE 105 mmol/L (98-107); GLOMERULAR FILTR. RATE CALC > 60 mL/min (>60); GLUCOSE,RANDOM 106 mg/dL (70-110); POTASSIUM 3.9 mmol/L (3.5-5.1); SODIUM SERUM 143 mmol/L (136-145); UREA NITROGEN, BLOOD 8 mg/dL (7-18)
[2018-06-20 15:45] LABS: ALANINE AMINOTRANSFERASE 13 U/L (12-78); ALBUMIN 4.5 g/dL (3.4-5.0); ALKALINE PHOSPHATASE 85 U/L (46-116); ASPARTATE AMINOTRANSFERASE 17 U/L (15-37); BILIRUBIN,TOTAL 0.3 mg/dL (0.1-1.0); TOTAL PROTEIN, SERUM 8.3 g/dL (6.4-8.2)
[2018-06-20 17:39] LABS: AMPHET/METH SCREEN,URINE NEGATIVE (NEGATIVE); BARBITURATE SCREEN, URINE NEGATIVE (NEGATIVE); BENZODIAZEPINES SCREEN,URINE NEGATIVE (NEGATIVE); CANNABINOID SCREEN,URINE NEGATIVE (NEGATIVE); COCAINE SCREEN,URINE NEGATIVE (NEGATIVE); METHADONE SCREEN, URINE NEGATIVE (NEGATIVE); OPIATE SCREEN,URINE NEGATIVE (NEGATIVE)
[2018-06-20 17:51] LABS: PHENCYCLIDINE SCREEN,URINE NEGATIVE (NEGATIVE)
[2018-06-20] MEDS ORDERED: ZOLPIDEM TARTRATE 10 MG TABLET PO PRN (19:15)
[2018-06-20] MEDS ORDERED: IBUPROFEN 400 MG TABLET PO PRN (19:30)
[2018-06-20] MEDS ORDERED: ACETAMINOPHEN 325 MG TABLET PO PRN (19:30)
[2018-06-20 22:00] VITALS: BP 103/75
[2018-06-20 22:19] LABS: GLUCOMETER DEV NAME(LOC) BV2N3; GLUCOSE,POINT OF CARE 111 MG/DL (70-110)
[2018-06-20] MEDS ORDERED: MAGNESIUM HYDROXIDE SUSPENSION 30 ML UDCUP PO PRN (22:30)
[2018-06-20] MEDS ORDERED: GuaiFENesin/D-METHORPHAN [SUGAR-FREE] 200-20MG/10 ML SYRUP UDCUP PO PRN (22:30)
[2018-06-20] MEDS ORDERED: MAG HYDROX/AL HYDROX/SIMETH ES 30 ML SUSPENSION UDCUP PO PRN (22:30)
[2018-06-20] MEDS ORDERED: DOCUSATE SODIUM 100 MG CAPSULE PO PRN (22:30)
[2018-06-20] MEDS ORDERED: ONDANSETRON HCL 4 MG TABLET PO PRN (22:30)
[2018-06-20] MEDS ORDERED: PETROLATUM,WHITE 71 GM JELLY TP PRN (22:30)
[2018-06-20] MEDS ORDERED: CloNIDine HCL 0.1 MG TABLET PO PRN (22:30)
[2018-06-20] MEDS ORDERED: ALBUTEROL SULFATE HFA 90 MCG/PUFF 8 GM INHALER IH PRN (22:30)
[2018-06-20] MEDS: LORazepam 2 MG TABLET PO PRN (22:54)
[2018-06-20 22:55] VITALS: BP 120/68
[2018-06-21 00:10] VITALS: BP 113/71
[2018-06-21] MEDS: GEMFIBROZIL 600 MG TABLET PO SCH ×2 (06:20→17:00)
[2018-06-21] MEDS: LEVOTHYROXINE SODIUM 125 MCG TABLET PO SCH (06:20)
[2018-06-21 07:47] LABS: BASOPHILS % (AUTO) 0.7 % (0.0-2.0); HEMATOCRIT 39.3 % (41-53); HEMOGLOBIN 13.5 g/dL (13.5-17.5); LYMPHOCYTES # (AUTO) 1.7 K/uL (1.0-4.8); LYMPHOCYTES % (AUTO) 24.5 % (22.0-44.0); MEAN CORPUSCULAR HEMOGLOBIN 28.1 pg (26.0-34.0); MEAN CORPUSCULAR HGB CONC 34.3 G/dL (31.0-37.0); MEAN CORPUSCULAR VOLUME 82 fL (80-100); MONOCYTES # (AUTO) 0.4 K/uL (0.1-1.0); MONOCYTES % (AUTO) 5.7 % (2.0-9.0); NEUTROPHILS # (AUTO) 4.5 K/uL (1.8-7.7); NEUTROPHILS % (AUTO) 64.1 % (40.0-70.0); PLATELET COUNT (AUTO) 250 K/uL (150-450); RED BLOOD CELL COUNT(AUTO) 4.79 MIL/uL (4.50-5.90); RED CELL DISTRIBUTION WIDTH 13.8 % (11.5-14.5)
[2018-06-21 08:09] LABS: HEMOGLOBIN A1C 4.9 % (4.5-6.2)
[2018-06-21 08:15] VITALS: BP 102/60
[2018-06-21 08:21] LABS: ALANINE AMINOTRANSFERASE 13 U/L (12-78); ALBUMIN 3.7 g/dL (3.4-5.0); ALKALINE PHOSPHATASE 70 U/L (46-116); ANION GAP 10 mmol/L (8-16); ASPARTATE AMINOTRANSFERASE 15 U/L (15-37); BILIRUBIN,TOTAL 0.5 mg/dL (0.1-1.0); CALCIUM, TOTAL 8.7 mg/dL (8.8-10.5); CARBON DIOXIDE 27 mmol/L (22-29); CHLORIDE 104 mmol/L (98-107); CHOL/HDL RATIO 3.7 (4.2-7.3); CHOLESTEROL 148 mg/dL (131-200); GLOMERULAR FILTR. RATE CALC > 60 mL/min (>60); GLUCOSE,RANDOM 79 mg/dL (70-110); HDL CHOLESTEROL 40 mg/dL (40-60); LDL CHOL (CALC.) 87 mg/dL (0-130); POTASSIUM 3.5 mmol/L (3.5-5.1); SODIUM SERUM 141 mmol/L (136-145); TOTAL PROTEIN, SERUM 6.7 g/dL (6.4-8.2); TRIGLYCERIDES 104 mg/dL (15-150); UREA NITROGEN, BLOOD 7 mg/dL (7-18)
[2018-06-21 09:22] LABS: THYROID STIMULATING HORMONE 129.73 uIU/mL (0.36-3.74)
[2018-06-21] MEDS: HALOPERIDOL 5 MG TABLET PO PRN (12:38)
[2018-06-21 13:00] VITALS: BP 125/77
[2018-06-21] MEDS: GABAPENTIN 400 MG CAPSULE PO SCH ×2 (13:00→19:38)
[2018-06-21 13:36] VITALS: BP 125/77
[2018-06-21] MEDS: DULoxetine HCL 60 MG CAPSULE PO SCH (17:00)
[2018-06-21 19:32] VITALS: BP 115/74
[2018-06-21 19:43] VITALS: BP 125/77
[2018-06-21] MEDS: OLANZapine 10 MG RAPDIS TABLET PO SCH (20:21)
[2018-06-22 00:29] VITALS: BP 125/77
[2018-06-22] MEDS: GEMFIBROZIL 600 MG TABLET PO SCH ×2 (06:44→16:37)
[2018-06-22] MEDS: LEVOTHYROXINE SODIUM 125 MCG TABLET PO SCH (06:44)
[2018-06-22 07:12] VITALS: BP 104/59
[2018-06-22 08:03] VITALS: BP 110/65
[2018-06-22] MEDS: DULoxetine HCL 60 MG CAPSULE PO SCH ×2 (08:11→16:37)
[2018-06-22] MEDS: GABAPENTIN 400 MG CAPSULE PO SCH ×3 (08:12→16:37)
[2018-06-22] MEDS: LORazepam 2 MG TABLET PO PRN (16:37)
[2018-06-22] MEDS: HALOPERIDOL 5 MG TABLET PO PRN (16:37)
[2018-06-22 19:23] VITALS: BP 100/64
[2018-06-22] MEDS: OLANZapine 10 MG RAPDIS TABLET PO SCH (20:19)
[2018-06-23 03:52] VITALS: BP 111/72
[2018-06-23] MEDS: LEVOTHYROXINE SODIUM 125 MCG TABLET PO SCH (06:54)
[2018-06-23] MEDS: GEMFIBROZIL 600 MG TABLET PO SCH ×2 (06:54→16:34)
[2018-06-23 08:03] VITALS: BP 106/60
[2018-06-23] MEDS: GABAPENTIN 400 MG CAPSULE PO SCH ×3 (08:30→16:34)
[2018-06-23] MEDS: DULoxetine HCL 60 MG CAPSULE PO SCH ×2 (08:30→16:34)
[2018-06-23 09:36] VITALS: BP 106/60
[2018-06-23 16:58] VITALS: BP 134/70
[2018-06-23] MEDS: OLANZapine 10 MG RAPDIS TABLET PO SCH (20:14)
[2018-06-24] MEDS: GEMFIBROZIL 600 MG TABLET PO SCH ×2 (06:46→16:52)
[2018-06-24] MEDS: LEVOTHYROXINE SODIUM 125 MCG TABLET PO SCH (06:46)
[2018-06-24 06:58] VITALS: BP 105/64
[2018-06-24 08:03] VITALS: BP 106/57
[2018-06-24] MEDS: GABAPENTIN 400 MG CAPSULE PO SCH ×2 (08:12→12:34)
[2018-06-24] MEDS: DULoxetine HCL 60 MG CAPSULE PO SCH ×2 (08:12→17:00)
[2018-06-24] MEDS ORDERED: GABAPENTIN 400 MG CAPSULE PO SCH (13:00)
[2018-06-24 16:21] VITALS: BP 111/62
[2018-06-24] MEDS: LORazepam 2 MG TABLET PO PRN (17:00)
[2018-06-24] MEDS: HALOPERIDOL 5 MG TABLET PO PRN (17:00)
[2018-06-24] MEDS: GABAPENTIN 300 MG CAPSULE PO SCH (17:18)
[2018-06-24] MEDS: OLANZapine 10 MG RAPDIS TABLET PO SCH (20:23)
[2018-06-25 06:30] VITALS: BP 110/65
[2018-06-25] MEDS: GEMFIBROZIL 600 MG TABLET PO SCH ×2 (06:35→16:35)
[2018-06-25] MEDS: LEVOTHYROXINE SODIUM 125 MCG TABLET PO SCH (06:35)
[2018-06-25] MEDS: HALOPERIDOL 5 MG TABLET PO PRN ×2 (08:00→16:35)
[2018-06-25] MEDS: GABAPENTIN 300 MG CAPSULE PO SCH ×3 (08:00→16:35)
[2018-06-25] MEDS: LORazepam 2 MG TABLET PO PRN ×2 (08:00→16:35)
[2018-06-25] MEDS: DULoxetine HCL 60 MG CAPSULE PO SCH ×2 (08:01→16:35)
[2018-06-25 08:03] VITALS: BP 100/60
[2018-06-25 16:01] VITALS: BP 110/76
[2018-06-25] MEDS: OLANZapine 10 MG RAPDIS TABLET PO SCH (20:20)
[2018-06-26 06:24] VITALS: BP 107/61
[2018-06-26] MEDS: LEVOTHYROXINE SODIUM 125 MCG TABLET PO SCH (06:36)
[2018-06-26] MEDS: GEMFIBROZIL 600 MG TABLET PO SCH ×2 (06:36→16:58)
[2018-06-26 08:06] VITALS: BP 109/60
[2018-06-26] MEDS: DULoxetine HCL 60 MG CAPSULE PO SCH ×2 (08:37→16:58)
[2018-06-26] MEDS: GABAPENTIN 300 MG CAPSULE PO SCH ×3 (08:37→16:59)
[2018-06-26 16:15] VITALS: BP 125/85
[2018-06-26] MEDS: OLANZapine 10 MG RAPDIS TABLET PO SCH (20:27)
[2018-06-27] MEDS: LEVOTHYROXINE SODIUM 125 MCG TABLET PO SCH (06:56)
[2018-06-27] MEDS: GEMFIBROZIL 600 MG TABLET PO SCH ×2 (06:57→16:45)
[2018-06-27 08:10] VITALS: BP 120/81
[2018-06-27] MEDS: DULoxetine HCL 60 MG CAPSULE PO SCH ×2 (08:25→17:04)
[2018-06-27] MEDS: GABAPENTIN 300 MG CAPSULE PO SCH ×3 (08:25→17:04)
[2018-06-27 16:00] VITALS: BP 130/77
[2018-06-27] MEDS: OLANZapine 10 MG RAPDIS TABLET PO SCH (20:35)
[2018-06-28] MEDS: GEMFIBROZIL 600 MG TABLET PO SCH ×2 (06:46→16:50)
[2018-06-28] MEDS: LEVOTHYROXINE SODIUM 125 MCG TABLET PO SCH (06:46)
[2018-06-28 06:50] VITALS: BP 127/78
[2018-06-28 08:06] VITALS: BP 108/60
[2018-06-28] MEDS: GABAPENTIN 300 MG CAPSULE PO SCH ×3 (08:24→16:50)
[2018-06-28] MEDS: DULoxetine HCL 60 MG CAPSULE PO SCH ×2 (08:24→16:50)
[2018-06-28 16:20] VITALS: BP 114/67
[2018-06-28] MEDS: HALOPERIDOL 5 MG TABLET PO PRN (18:20)
[2018-06-28] MEDS: OLANZapine 10 MG RAPDIS TABLET PO SCH (20:24)
[2018-06-28] MEDS: LORazepam 2 MG TABLET PO PRN (20:24)
[2018-06-29 00:01] VITALS: BP 117/72
[2018-06-29] MEDS: LEVOTHYROXINE SODIUM 125 MCG TABLET PO SCH (07:15)
[2018-06-29] MEDS: GEMFIBROZIL 600 MG TABLET PO SCH ×2 (07:15→16:41)
[2018-06-29] MEDS: GABAPENTIN 300 MG CAPSULE PO SCH ×3 (08:19→16:41)
[2018-06-29] MEDS: DULoxetine HCL 60 MG CAPSULE PO SCH ×2 (08:19→16:41)
[2018-06-29 08:26] VITALS: BP 111/64
[2018-06-29 16:03] VITALS: BP 130/75
[2018-06-29] MEDS: HALOPERIDOL 5 MG TABLET PO PRN (16:41)
[2018-06-29] MEDS: LORazepam 2 MG TABLET PO PRN (18:31)
[2018-06-29] MEDS: OLANZapine 10 MG RAPDIS TABLET PO SCH (20:22)
[2018-06-30 02:46] VITALS: BP 117/73
[2018-06-30] MEDS: GEMFIBROZIL 600 MG TABLET PO SCH ×2 (06:40→16:30)
[2018-06-30] MEDS: LEVOTHYROXINE SODIUM 125 MCG TABLET PO SCH (06:40)
[2018-06-30] MEDS: DULoxetine HCL 60 MG CAPSULE PO SCH ×2 (08:11→16:30)
[2018-06-30] MEDS: GABAPENTIN 300 MG CAPSULE PO SCH ×3 (08:11→16:30)
[2018-06-30 08:33] VITALS: BP 119/76
[2018-06-30 16:00] VITALS: BP 126/80
[2018-06-30] MEDS: HALOPERIDOL 5 MG TABLET PO PRN (16:30)
[2018-06-30] MEDS: LORazepam 2 MG TABLET PO PRN (16:30)
[2018-06-30] MEDS ORDERED: PETROLATUM,WHITE 71 GM JELLY TP PRN (16:30)
[2018-06-30] MEDS: OLANZapine 10 MG RAPDIS TABLET PO SCH (20:13)
[2018-07-01 01:47] VITALS: BP 115/72
[2018-07-01] MEDS: LEVOTHYROXINE SODIUM 125 MCG TABLET PO SCH (06:38)
[2018-07-01] MEDS: GEMFIBROZIL 600 MG TABLET PO SCH ×2 (06:38→16:39)
[2018-07-01 08:02] VITALS: BP 106/63
[2018-07-01] MEDS: GABAPENTIN 300 MG CAPSULE PO SCH ×3 (08:04→16:38)
[2018-07-01] MEDS: DULoxetine HCL 60 MG CAPSULE PO SCH ×2 (08:04→16:39)
[2018-07-01 09:34] LABS: APPEARANCE,URINE CLEAR (CLEAR); BILIRUBIN,URINE NEGATIVE (NEGATIVE); GLUCOSE, URINE (UA) NEGATIVE (NEGATIVE); KETONES,URINE NEGATIVE (NEGATIVE); LEUKOCYTE ESTERASE ,URINE NEGATIVE (NEGATIVE); NITRATE,URINE NEGATIVE (NEGATIVE); OCCULT BLOOD,URINE NEGATIVE (NEGATIVE); PH,URINE 7.5 (5.0-8.0); PROTEIN,URINE NEGATIVE (NEGATIVE); UROBILINOGEN,URINE 0.2 mg/dL (<=1.0)
[2018-07-01 16:00] VITALS: BP 126/81
[2018-07-01] MEDS: OLANZapine 10 MG RAPDIS TABLET PO SCH (20:28)
[2018-07-02] MEDS: GEMFIBROZIL 600 MG TABLET PO SCH (06:12)
[2018-07-02] MEDS: LEVOTHYROXINE SODIUM 125 MCG TABLET PO SCH (06:12)
[2018-07-02 06:28] VITALS: BP 106/73
[2018-07-02 08:03] VITALS: BP 109/60
[2018-07-02] MEDS: GABAPENTIN 300 MG CAPSULE PO SCH ×2 (08:12→12:47)
[2018-07-02] MEDS: DULoxetine HCL 60 MG CAPSULE PO SCH (08:12)
[2018-07-02] MEDS ORDERED: OLAN10TA6 PO (08:30)
[2018-07-02] MEDS ORDERED: DULO60CA44 PO (08:30)
[2018-07-02] MEDS ORDERED: GEMF600T5 PO (08:30)
[2018-07-02] MEDS ORDERED: GABA-531 PO (08:30)
== END 2018-07-02 14:03 | disposition home or self-care (01) | DRG 750 ==
LOC: EMS 13:56 → B2S 20:00 → B3A 06-21 13:20
PROVIDERS: ADMIT Psychiatry & Neurology Psychiatry; ATTEND Psychiatry & Neurology Psychiatry
DX: F25.0 Schizoaffective disorder, bipolar type (principal); R45.851 Suicidal ideations; E11.9 Type 2 diabetes mellitus without complications; F41.9 Anxiety disorder, unspecified; F60.3 Borderline personality disorder; H91.90 Unspecified hearing loss, unspecified ear; I10 Essential (primary) hypertension; E78.5 Hyperlipidemia, unspecified; E78.00 Pure hypercholesterolemia, unspecified; E03.9 Hypothyroidism, unspecified; Z91.011 Allergy to milk products; Z91.5 Personal history of self-harm; Z91.040 Latex allergy status
CPT/HCPCS: 83036; 84443; 99285; G0480

== ENCOUNTER 2018-06-21 14:11 | Emergency (ER) | payer MEDICAID, OTHER ==
[~2018-06-21] VITALS: Ht 149.9 cm; Wt 54.5 kg
[2018-06-21 18:12] VITALS: BP 121/88
== END 2018-06-21 19:12 | disposition home or self-care (01) ==
LOC: EMS 14:12
DX: S09.90XA Unspecified injury of head, initial encounter (principal); R45.851 Suicidal ideations; I10 Essential (primary) hypertension; E03.9 Hypothyroidism, unspecified; E78.00 Pure hypercholesterolemia, unspecified; F20.9 Schizophrenia, unspecified; Z91.040 Latex allergy status; Z91.011 Allergy to milk products; Y29.XXXA Contact with blunt object, undetermined intent, initial encounter; Y93.89 Activity, other specified; Y92.89 Other specified places as the place of occurrence of the external cause; Y99.8 Other external cause status
CPT/HCPCS: 70450; 72125; 99284; 99285

== ENCOUNTER 2018-10-20 15:46 | Inpatient (IN) | payer MEDICAID, OTHER ==
[~2018-10-20] VITALS: Ht 147.3 cm; Wt 59.5 kg
[~2018-10-20 15:46] MED LIST changes: +GEMF600T5 PO; -NALT50TA PO; -OLAN10TA22 PO; +OLAN10TA6 PO
[2018-10-20 17:40] LABS: BASOPHILS % (AUTO) 1.1 % (0.0-2.0); EOSINOPHILS % (AUTO) 2.6 % (1.0-6.0); HEMATOCRIT 40.7 % (41-53); HEMOGLOBIN 13.8 g/dL (13.5-17.5); LYMPHOCYTES # (AUTO) 1.5 K/uL (1.0-4.8); LYMPHOCYTES % (AUTO) 28.4 % (22.0-44.0); MEAN CORPUSCULAR HGB CONC 33.9 G/dL (31.0-37.0); MEAN CORPUSCULAR VOLUME 86 fL (80-100); MONOCYTES # (AUTO) 0.5 K/uL (0.1-1.0); MONOCYTES % (AUTO) 8.5 % (2.0-9.0); NEUTROPHILS # (AUTO) 3.2 K/uL (1.8-7.7); NEUTROPHILS % (AUTO) 59.4 % (40.0-70.0); PLATELET COUNT (AUTO) 318 K/uL (150-450); RED BLOOD CELL COUNT(AUTO) 4.74 MIL/uL (4.50-5.90); RED CELL DISTRIBUTION WIDTH 14.3 % (11.5-14.5)
[2018-10-20 17:46] LABS: ANION GAP 10 mmol/L (8-16); CALCIUM, TOTAL 8.4 mg/dL (8.8-10.5); CARBON DIOXIDE 25 mmol/L (22-29); CHLORIDE 106 mmol/L (98-107); CREATININE 1.07 mg/dL (0.60-1.30); GLOMERULAR FILTR. RATE CALC > 60 mL/min (>60); GLUCOSE,RANDOM 88 mg/dL (70-110); POTASSIUM 4.1 mmol/L (3.5-5.1); SODIUM SERUM 141 mmol/L (136-145); UREA NITROGEN, BLOOD 19 mg/dL (7-18)
[2018-10-20 17:53] LABS: ALANINE AMINOTRANSFERASE 17 U/L (12-78); ALBUMIN 3.8 g/dL (3.4-5.0); ALKALINE PHOSPHATASE 78 U/L (46-116); ASPARTATE AMINOTRANSFERASE 18 U/L (15-37); BILIRUBIN,TOTAL 0.3 mg/dL (0.1-1.0); TOTAL PROTEIN, SERUM 7.5 g/dL (6.4-8.2)
[2018-10-20] MEDS ORDERED: LORazepam 2 MG TABLET PO PRN (18:00)
[2018-10-20] MEDS ORDERED: ZOLPIDEM TARTRATE 10 MG TABLET PO PRN (18:00)
[2018-10-20] MEDS ORDERED: HALOPERIDOL 5 MG TABLET PO PRN (18:00)
[2018-10-20] MEDS ORDERED: LORazepam 2 MG TABLET PO ONE (18:45)
[2018-10-20] MEDS ORDERED: HALOPERIDOL 5 MG TABLET PO ONE (18:45)
[2018-10-20] MEDS ORDERED: PERTUSS(ACELL),DIPH,TET VAC/PF 0.5 ML VIAL IM ONE (18:45)
[2018-10-20 18:49] LABS: AMPHET/METH SCREEN,URINE NEGATIVE (NEGATIVE); BARBITURATE SCREEN, URINE NEGATIVE (NEGATIVE); BENZODIAZEPINES SCREEN,URINE NEGATIVE (NEGATIVE); CANNABINOID SCREEN,URINE NEGATIVE (NEGATIVE); COCAINE SCREEN,URINE NEGATIVE (NEGATIVE); METHADONE SCREEN, URINE NEGATIVE (NEGATIVE); OPIATE SCREEN,URINE NEGATIVE (NEGATIVE)
[2018-10-20 18:53] LABS: PHENCYCLIDINE SCREEN,URINE NEGATIVE (NEGATIVE)
[2018-10-20 20:00] VITALS: BP 101/69
[2018-10-20] MEDS ORDERED: IBUPROFEN 400 MG TABLET PO PRN (21:45)
[2018-10-20] MEDS ORDERED: GuaiFENesin/D-METHORPHAN [SUGAR-FREE] 200-20MG/10 ML SYRUP UDCUP PO PRN (21:45)
[2018-10-20] MEDS ORDERED: DOCUSATE SODIUM 100 MG CAPSULE PO PRN (21:45)
[2018-10-20] MEDS ORDERED: NICOTINE 14 MG/24 HOUR PATCH TD PRN (21:45)
[2018-10-20] MEDS ORDERED: MAG HYDROX/AL HYDROX/SIMETH ES 30 ML SUSPENSION UDCUP PO PRN (21:45)
[2018-10-20] MEDS ORDERED: ACETAMINOPHEN 325 MG TABLET PO PRN (21:45)
[2018-10-20] MEDS ORDERED: CloNIDine HCL 0.1 MG TABLET PO PRN (21:45)
[2018-10-20] MEDS ORDERED: PETROLATUM,WHITE 71 GM JELLY TP PRN (21:45)
[2018-10-20] MEDS ORDERED: ALBUTEROL SULFATE HFA 90 MCG/PUFF 8 GM INHALER IH PRN (21:45)
[2018-10-20] MEDS ORDERED: ONDANSETRON HCL 4 MG TABLET PO PRN (21:45)
[2018-10-20] MEDS ORDERED: MAGNESIUM HYDROXIDE SUSPENSION 30 ML UDCUP PO PRN (21:45)
[2018-10-20] MEDS ORDERED: LOPERAMIDE HCL 2 MG CAPSULE PO PRN (21:45)
[2018-10-21] MEDS: GEMFIBROZIL 600 MG TABLET PO SCH ×2 (06:47→16:26)
[2018-10-21] MEDS ORDERED: LEVOTHYROXINE SODIUM 125 MCG TABLET PO SCH (07:00)
[2018-10-21] MEDS: BACITRACIN 28.4 GM OINTMENT TP SCH ×2 (09:00→17:19)
[2018-10-21 10:17] LABS: BASOPHILS % (AUTO) 1.2 % (0.0-2.0); EOSINOPHILS % (AUTO) 3.1 % (1.0-6.0); HEMATOCRIT 40.2 % (41-53); HEMOGLOBIN 13.8 g/dL (13.5-17.5); LYMPHOCYTES # (AUTO) 1.4 K/uL (1.0-4.8); MEAN CORPUSCULAR HEMOGLOBIN 29.1 pg (26.0-34.0); MEAN CORPUSCULAR HGB CONC 34.4 G/dL (31.0-37.0); MEAN CORPUSCULAR VOLUME 85 fL (80-100); MONOCYTES # (AUTO) 0.3 K/uL (0.1-1.0); MONOCYTES % (AUTO) 5.2 % (2.0-9.0); NEUTROPHILS # (AUTO) 3.5 K/uL (1.8-7.7); NEUTROPHILS % (AUTO) 64.5 % (40.0-70.0); PLATELET COUNT (AUTO) 305 K/uL (150-450); RED BLOOD CELL COUNT(AUTO) 4.75 MIL/uL (4.50-5.90); RED CELL DISTRIBUTION WIDTH 14.1 % (11.5-14.5)
[2018-10-21 10:19] VITALS: BP 137/82
[2018-10-21 10:29] LABS: HEMOGLOBIN A1C 5.2 % (4.5-6.2)
[2018-10-21 10:41] LABS: ALANINE AMINOTRANSFERASE 19 U/L (12-78); ALKALINE PHOSPHATASE 77 U/L (46-116); ANION GAP 12 mmol/L (8-16); ASPARTATE AMINOTRANSFERASE 17 U/L (15-37); BILIRUBIN,TOTAL 0.3 mg/dL (0.1-1.0); CALCIUM, TOTAL 9.1 mg/dL (8.8-10.5); CARBON DIOXIDE 24 mmol/L (22-29); CHLORIDE 106 mmol/L (98-107); CHOL/HDL RATIO 3.1 (4.2-7.3); CHOLESTEROL 146 mg/dL (131-200); CREATININE 1.12 mg/dL (0.60-1.30); FREE T4 (FREE THYROXINE) 0.59 ng/dL (0.76-1.46); GLOMERULAR FILTR. RATE CALC > 60 mL/min (>60); GLUCOSE,RANDOM 126 mg/dL (70-110); HDL CHOLESTEROL 47 mg/dL (40-60); LDL CHOL (CALC.) 75 mg/dL (0-130); POTASSIUM 4.1 mmol/L (3.5-5.1); SODIUM SERUM 142 mmol/L (136-145); TOTAL PROTEIN, SERUM 7.7 g/dL (6.4-8.2); TRIGLYCERIDES 121 mg/dL (15-150); UREA NITROGEN, BLOOD 17 mg/dL (7-18)
[2018-10-21] MEDS: DULoxetine HCL 60 MG CAPSULE PO SCH (16:26)
[2018-10-21] MEDS: OLANZapine 10 MG RAPDIS TABLET PO SCH (20:16)
[2018-10-21 22:17] VITALS: BP 137/81
[2018-10-22] MEDS: LEVOTHYROXINE SODIUM 50 MCG TABLET PO SCH (07:05)
[2018-10-22] MEDS: GEMFIBROZIL 600 MG TABLET PO SCH ×2 (07:06→16:39)
[2018-10-22] MEDS: DULoxetine HCL 60 MG CAPSULE PO SCH ×2 (08:54→16:40)
[2018-10-22] MEDS: BACITRACIN 28.4 GM OINTMENT TP SCH ×2 (08:58→16:40)
[2018-10-22 09:00] VITALS: BP_SYST 119; BP_SYST 126; BP_DIAS 76; BP_DIAS 84
[2018-10-22 10:00] VITALS: BP 112/71
[2018-10-22 18:49] VITALS: BP 116/71
[2018-10-22] MEDS: OLANZapine 10 MG RAPDIS TABLET PO SCH (20:39)
[2018-10-23] MEDS: LEVOTHYROXINE SODIUM 50 MCG TABLET PO SCH (07:12)
[2018-10-23] MEDS: GEMFIBROZIL 600 MG TABLET PO SCH ×2 (07:12→16:49)
[2018-10-23] MEDS: DULoxetine HCL 60 MG CAPSULE PO SCH ×2 (08:46→16:49)
[2018-10-23] MEDS: BACITRACIN 28.4 GM OINTMENT TP SCH ×2 (08:46→16:50)
[2018-10-23 10:35] VITALS: BP 140/94
[2018-10-23 17:00] VITALS: BP 116/76
[2018-10-23] MEDS: OLANZapine 10 MG RAPDIS TABLET PO SCH (20:24)
[2018-10-24] MEDS: LEVOTHYROXINE SODIUM 50 MCG TABLET PO SCH (06:45)
[2018-10-24] MEDS: GEMFIBROZIL 600 MG TABLET PO SCH ×2 (06:45→17:41)
[2018-10-24 09:30] VITALS: BP 122/80
[2018-10-24] MEDS: DULoxetine HCL 60 MG CAPSULE PO SCH ×2 (09:37→17:40)
[2018-10-24] MEDS: BACITRACIN 28.4 GM OINTMENT TP SCH ×2 (09:37→17:41)
[2018-10-24 16:15] VITALS: BP 129/91
[2018-10-24] MEDS: OLANZapine 10 MG RAPDIS TABLET PO SCH (20:56)
[2018-10-25] MEDS: LEVOTHYROXINE SODIUM 50 MCG TABLET PO SCH (06:47)
[2018-10-25] MEDS: GEMFIBROZIL 600 MG TABLET PO SCH ×2 (06:48→17:43)
[2018-10-25 08:33] VITALS: BP 121/80
[2018-10-25] MEDS: DULoxetine HCL 60 MG CAPSULE PO SCH ×2 (09:30→17:43)
[2018-10-25] MEDS: BACITRACIN 28.4 GM OINTMENT TP SCH ×2 (09:47→17:43)
[2018-10-25 17:07] VITALS: BP 127/76
[2018-10-25] MEDS: OLANZapine 10 MG RAPDIS TABLET PO SCH (22:15)
[2018-10-26] MEDS: LEVOTHYROXINE SODIUM 50 MCG TABLET PO SCH (06:59)
[2018-10-26] MEDS: GEMFIBROZIL 600 MG TABLET PO SCH ×2 (06:59→16:44)
[2018-10-26 08:14] VITALS: BP 105/55
[2018-10-26] MEDS: BACITRACIN 28.4 GM OINTMENT TP SCH ×2 (09:00→16:44)
[2018-10-26] MEDS: DULoxetine HCL 60 MG CAPSULE PO SCH ×2 (09:48→16:44)
[2018-10-26 17:37] VITALS: BP 114/81
[2018-10-26] MEDS: OLANZapine 10 MG RAPDIS TABLET PO SCH (20:48)
[2018-10-27] MEDS: LEVOTHYROXINE SODIUM 50 MCG TABLET PO SCH (06:46)
[2018-10-27] MEDS: GEMFIBROZIL 600 MG TABLET PO SCH ×2 (06:46→16:48)
[2018-10-27 09:14] VITALS: BP 102/61
[2018-10-27] MEDS: DULoxetine HCL 60 MG CAPSULE PO SCH ×2 (09:44→16:48)
[2018-10-27 16:55] VITALS: BP 119/76
[2018-10-27] MEDS: BACITRACIN 28.4 GM OINTMENT TP SCH (16:55)
[2018-10-27] MEDS: OLANZapine 10 MG RAPDIS TABLET PO SCH (20:06)
[2018-10-28] MEDS: GEMFIBROZIL 600 MG TABLET PO SCH (06:52)
[2018-10-28] MEDS: LEVOTHYROXINE SODIUM 50 MCG TABLET PO SCH (06:52)
[2018-10-28] MEDS: DULoxetine HCL 60 MG CAPSULE PO SCH (09:46)
[2018-10-28 10:42] VITALS: BP 98/64
== END 2018-10-28 14:45 | disposition home or self-care (01) | DRG 750 ==
LOC: EMS 15:46 → 3EI 19:00
PROVIDERS: ADMIT Psychiatry & Neurology Psychiatry; ATTEND Psychiatry & Neurology Psychiatry
DX: F25.0 Schizoaffective disorder, bipolar type (principal); E11.9 Type 2 diabetes mellitus without complications; E03.9 Hypothyroidism, unspecified; E78.00 Pure hypercholesterolemia, unspecified; E78.5 Hyperlipidemia, unspecified; F43.10 Post-traumatic stress disorder, unspecified; H91.90 Unspecified hearing loss, unspecified ear; I10 Essential (primary) hypertension; S51.811A Laceration without foreign body of right forearm, initial encounter; X78.8XXA Intentional self-harm by other sharp object, initial encounter; Z91.5 Personal history of self-harm; Z91.040 Latex allergy status; Z91.011 Allergy to milk products; Z79.890 Hormone replacement therapy; Z79.899 Other long term (current) drug therapy; Y93.89 Activity, other specified; Y92.89 Other specified places as the place of occurrence of the external cause; Y99.8 Other external cause status
CPT/HCPCS: 83036; 84439; 84443; 90471; 90715; G0480

== ENCOUNTER 2018-12-20 18:42 | Emergency (ER) | payer MEDICAID, OTHER ==
[~2018-12-20] VITALS: Ht 147.3 cm; Wt 59.1 kg
[~2018-12-20 18:42] MED LIST changes: -GABA-531 PO
[2018-12-20] MEDS ORDERED: METO25 PO (19:30)
[2018-12-20] MEDS ORDERED: BENZ1TAB10 PO (19:30)
[2018-12-20] MEDS ORDERED: LEVO175T9 PO (19:34)
[2018-12-20 20:09] LABS: BASOPHILS % (AUTO) 0.7 % (0.0-2.0); EOSINOPHILS % (AUTO) 1.8 % (1.0-6.0); HEMATOCRIT 39.3 % (41-53); HEMOGLOBIN 13.6 g/dL (13.5-17.5); LYMPHOCYTES # (AUTO) 1.5 K/uL (1.0-4.8); LYMPHOCYTES % (AUTO) 25.1 % (22.0-44.0); MEAN CORPUSCULAR HEMOGLOBIN 28.7 pg (26.0-34.0); MEAN CORPUSCULAR HGB CONC 34.6 G/dL (31.0-37.0); MEAN CORPUSCULAR VOLUME 83 fL (80-100); MONOCYTES # (AUTO) 0.5 K/uL (0.1-1.0); MONOCYTES % (AUTO) 8.6 % (2.0-9.0); NEUTROPHILS # (AUTO) 3.9 K/uL (1.8-7.7); NEUTROPHILS % (AUTO) 63.8 % (40.0-70.0); PLATELET COUNT (AUTO) 334 K/uL (150-450); RED BLOOD CELL COUNT(AUTO) 4.74 MIL/uL (4.50-5.90); RED CELL DISTRIBUTION WIDTH 12.8 % (11.5-14.5)
[2018-12-20 20:19] LABS: ANION GAP 5 mmol/L (8-16); CARBON DIOXIDE 30 mmol/L (22-29); CHLORIDE 106 mmol/L (98-107); CREATININE 1.14 mg/dL (0.60-1.30); GLOMERULAR FILTR. RATE CALC > 60 mL/min (>60); GLUCOSE,RANDOM 72 mg/dL (70-110); POTASSIUM 3.6 mmol/L (3.5-5.1); SODIUM SERUM 141 mmol/L (136-145); UREA NITROGEN, BLOOD 16 mg/dL (7-18)
[2018-12-20 20:31] LABS: SALICYLATE < 2.8 mg/dL (2.8-20.0)
[2018-12-20 20:35] LABS: ALANINE AMINOTRANSFERASE 27 U/L (12-78); ALBUMIN 3.8 g/dL (3.4-5.0); ALKALINE PHOSPHATASE 78 U/L (46-116); ASPARTATE AMINOTRANSFERASE 25 U/L (15-37); BILIRUBIN,TOTAL 0.2 mg/dL (0.1-1.0); THYROID STIMULATING HORMONE 1.67 uIU/mL (0.36-3.74); TOTAL PROTEIN, SERUM 7.2 g/dL (6.4-8.2)
[2018-12-20 20:48] LABS: AMPHET/METH SCREEN,URINE NEGATIVE (NEGATIVE); BARBITURATE SCREEN, URINE NEGATIVE (NEGATIVE); BENZODIAZEPINES SCREEN,URINE NEGATIVE (NEGATIVE); CANNABINOID SCREEN,URINE NEGATIVE (NEGATIVE); COCAINE SCREEN,URINE NEGATIVE (NEGATIVE); METHADONE SCREEN, URINE NEGATIVE (NEGATIVE); OPIATE SCREEN,URINE NEGATIVE (NEGATIVE); PHENCYCLIDINE SCREEN,URINE NEGATIVE (NEGATIVE)
[2018-12-20 20:56] LABS: ACETAMINOPHEN < 2 mcg/mL (10-30)
[2018-12-21 02:00] VITALS: BP 99/62
== END 2018-12-21 03:04 | disposition home or self-care (01) ==
LOC: EMS 18:46
DX: T43.211A Poisoning by selective serotonin and norepinephrine reuptake inhibitors, accidental (unintentional), initial encounter (principal); T44.7X1A Poisoning by beta-adrenoreceptor antagonists, accidental (unintentional), initial encounter; T38.1X1A Poisoning by thyroid hormones and substitutes, accidental (unintentional), initial encounter; E78.00 Pure hypercholesterolemia, unspecified; F20.9 Schizophrenia, unspecified; E03.9 Hypothyroidism, unspecified; I10 Essential (primary) hypertension; Z91.040 Latex allergy status; Z91.011 Allergy to milk products; Y92.89 Other specified places as the place of occurrence of the external cause
CPT/HCPCS: 36415; 70450; 72125; 80053; 80307; 84443; 85025; 93005; 99285; G0480 ×2; G0481